=== PATIENT | female | born 1970 | race Caucasian/White ===

== ENCOUNTER 2022-12-20 03:14 | Emergency (ER) | payer MEDICAID | END 2022-12-20 03:54 | disposition left against medical advice (07) | LOC: ER 03:15 | DX: M79.671 Pain in right foot (principal); Z53.21 Procedure and treatment not carried out due to patient leaving prior to being seen by health care provider ==

== ENCOUNTER 2025-03-14 17:31 | Inpatient (IN) | payer MEDICAID ==
[~2025-03-14] VITALS: Ht 172.7 cm; Wt 55.0 kg
--- NOTE | 2025-03-14 18:10 | ELECTROCARDIOGRAPH REPORT ---
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 Keith Krishnamurthy Measurements Intervals [place] Rate: 78 P: 23 WY: 117 QRS: 25 QRSD: 120 T: -73 QT: 441 QTc: 503 Interpretive Statements Sinus rhythm Borderline short [place] interval Nonspecific intraventricular conduction delay Borderline T abnormalities, diffuse leads Electronically Signed On 03-15-2025 11:00:[address] Keith Krishnamurthy Please click the below link to view image of tracing.
--- NOTE | 2025-03-14 18:35 | Physician Documentation ---
History of Present Illness ~ Chief Complaint: Mechanical Fall Stated Complaint: FALL/HEAD STRIKE Time Seen by MD: 18:15 HPI This is a 55-year-old female who resides at [place] [facility] presents for evaluation of potential injuries sustained yesterday at 3:00 a.m. where she had a mechanical fall while trying to get out of bed. She complains of head strike and right chest wall pain with significant swelling to her right breast tissue. No palliating or aggravating factors. Did not attempt to treat it. Unclear why she did not present any sooner. Denies difficulty breathing. History of excessive alcohol use, sober for eight months. Review of Systems ROS 10 point review of systems was performed and unless noted above in HPI is negative for acute process/complaint. Physical Exam Vital Signs: Temperature: 97.2, Source: Oral, Heart Rate: 77, Respiratory Rate: 18, BP: 90/55, Pulse Oximetry: 96, Weight: 55.000 Physical Exam GENERAL: Awake, alert, oriented, GCS 15, no apparent distress, non-toxic appearing, answers questions, follows commands appropriately. Examined in fast track C HEENT: Atraumatic, normocephalic, pupils equal, extraocular muscles intact, sclerae notably anicteric mucus membranes moist, oropharynx is clear, no stridor. NECK: Range of motion of the neck was limited secondary to trauma presentation, trachea midline, no thyromegaly, no lymphadenopathy, no JVD. CARDIOVASCULAR: regular rate/rhythm, no murmurs/gallops/rubs, Pulses are 2+ in all extremities and symmetric. Capillary refill less than 2 seconds. PULMONARY: Nonlabored, good air movement ,no respiratory distress, speaking in full sentences, clear to auscultation bilaterally, no wheezing, no ronchi, no rales, no accessory muscle use. GASTROINTESTINAL: Soft, non-tender, non-distended, normal active bowel sounds, no organomegaly, no pulsatile masses, no CVA tenderness. NEUROLOGIC: Lucid with normal mental status. Normal facial symmetry. Moves all extremities symmetrically and with purpose. No truncal ataxia. Speech is fluid without evidence of dysarthria or aphasia, no focal deficits appreciated. MUSCULOSKELETAL: There is full range of motion of all extremities. There is no joint pain or joint swelling or joint erythema. There is no muscle pain or tenderness or swelling. EXTREMITIES: warm, well-perfused, no cyanosis, no clubbing, no edema, no acute deformities. Skin: warm, dry, no rashes or lesions, no jaundice, no petechiae orpurpura. No ecchymosis. PSYCHIATRIC: Normal affect, normal insight, normal concentration. Focused exam: Large approximately 15 cm in diameter hematoma to the right breast noted. Tenderness to palpation. Patient arrived without a C-collar and was placed in C-collar the emergency department. Progress Results/Orders Results/Orders Orders - NANO EARL DO Ct Head (03/14/25 ) Ct Cervical Spine (03/14/25 ) Ct Chest Abdomen Pelvis Iv Con (03/14/25 18:30) K And/Or Mag Replacement (K And/Or Mag R (03/14/25 20:45) K (03/15/25 03:00) K (03/16/25 03:00) K (03/17/25 03:00) K (03/18/25 03:00) K (03/19/25 03:00) K (03/20/25 03:00) K (03/21/25 03:00) Potassium Cl Sr Tablet (K-Dur Tablet) (03/14/25 20:45) Potassium Cl Sr Tablet (K-Dur Tablet) (03/14/25 20:45) MG (03/15/25 03:00) MG (03/16/25 03:00) MG (03/17/25 03:00) MG (03/18/25 03:00) MG (03/19/25 03:00) Magnesium Sulf-Water 2g/50ml (Magnesium (03/14/25 20:45) Magnesium Sulf-Water 4g/100ml (Magnesium (03/14/25 20:45) Potassium Cl 40meq/1/2ns 520ml ([place] (03/14/25 20:45) Normal Saline 1,000ml Iv Bolus (03/14/25 20:55) Completed Orders - NANO EARL DO Ct Head (03/14/25 ) Ammonia (03/14/25 18:15) Ct Cervical Spine (03/14/25 ) Ct Chest Abdomen Pelvis Iv Con (03/14/25 18:30) Iohexol 300mg/Ml 100ml Inj. (Omnipaque-3 (03/14/25 18:45) Vital Signs 03/14/25 03/14/25 03/14/25 17:41 18:54 20:51 Temp 97.2 Pulse 77 Resp 18 16 18 B/P (MAP) 90/55 88/52 (64) Pulse Ox 96 98 Laboratory Tests Test 03/14/25 18:20 White Blood Count 5.4 Red Blood Count 2.20 L Hemoglobin 8.4 L Hematocrit 24.0 L Mean Corpuscular Volume 108.6 H Mean Corpuscular Hemoglobin 38.0 H Mean Corpuscular Hemoglobin Concent 35.0 Red Cell Distribution Width 15.4 H Platelet Count 116 L Mean Platelet Volume 6.3 L Neutrophils (%) (Auto) 49.1 Lymphocytes (%) (Auto) 31.5 Monocytes (%) (Auto) 17.5 H Eosinophils (%) (Auto) 1.3 Basophils (%) (Auto) 0.6 Neutrophils # (Auto) 2.6 Lymphocytes # (Auto) 1.7 Monocytes # (Auto) 0.9 Eosinophils # (Auto) 0.1 Basophils # (Auto) 0.0 CBC Comment Differential Total Cells Counted 100 Neutrophils % (Manual) 58.0 Lymphocytes % (Manual) 25.0 Monocytes % (Manual) 15.0 H Eosinophils % (Manual) 2.0 Platelet Estimate Decreased Red Blood Cell Morphology Perf Basophilic Stippling Anisocytosis 1+ Macrocytosis 1+ Prothrombin Time 21.1 H INR International Normalized Ratio 2.2 Activated Partial Thromboplast Time 46 H Coagulation Comments Sodium Level 133 L Potassium Level 2.6 *L Chloride Level 100 Carbon Dioxide Level 21.4 L Anion Gap 12 Blood Urea Nitrogen 7 Creatinine 1.27 H Estimated GFR/1.73 m2 43 BUN/Creatinine Ratio 5.5 L Glucose Level 131 H Calcium Level 7.8 L Total Bilirubin 5.5 H Aspartate Amino Transf (AST/SGOT) 61 H Alanine Aminotransferase (ALT/SGPT) 22 Alkaline Phosphatase 87 Ammonia 13 Troponin I High Sensitivity 11 Total Protein 5.5 L Albumin 2.5 L Globulin 3.0 Albumin/Globulin Ratio 0.8 L Lipase 49 Chemistry Comments Medical Decision Making Findings Facility Status: ED Holds, [facility] process The plan was discussed with the patient, who demonstrates clear understanding of the plan and is in agreement with the plan unless otherwise noted in the chart. All questions have been answered, all concerns were addressed unless otherwise documented. I was available throughout their ED stay for frequent reassessment and questions. Differential Diagnoses (considered and possible or likely): [Ground level fall, acute traumatic pain, closed head injury, concussion, subdural, subarachnoid, cervical spine fracture or subluxation, potential thoracic injury including breast contusion, rib fracture, rib contusion, breast hematoma, pulmonary contusion, less likely cardiac contusion] ??Differential Diagnoses (considered and unlikely, not requiring evaluation currently): [No evidence of lateralizing signs to suspect a stroke] MDM Data Please see HPI for the following: Independent Historians and external Records Review. 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 All vitals signs/haemodynamics, ordered tests were independently reviewed and interpreted by myself. Nursing triage complaint and vitals reviewed, additional nursing notes were reviewed as available and I agree unless otherwise noted or documented in contradiction in the chart Vital Signs: Independently reviewed Labs: Independently interpreted Imaging: Independently interpreted Old Medical Records: Independently reviewed, see HPI for relevant summary and information Pulse Oximetry: [] interpreted as [normal on room air] by me [Costume Director: [Regular Rate, Regular rhythm, no ectopy, NSR] reviewed and interpreted by me] Additionally notably showing: [The patient has a borderline blood pressure which is likely related to her liver dysfunction and low albumin. Improved with fluids. The hypokalemia noted. Troponin is negative. Ammonia is normal. Imaging is unremarkable.] Tests considered but not ordered include: [MRI of altered mental status if n eeded can be done on an inpatient basis] Social Determinants of Health Impact: Patient was evaluated in [facility], or [facility] [place] to healthcare due to below par ratio of patient to medical providers. [] Comorbid Conditions Impacting Present Evaluation and Care/Treatment: [Multiple, see list] Management Discussions with other Healthcare Providers: [Hospitalist regarding admission] Treatment and Disposition Medication Management (Given or considered): []. See EMR for details Consideration for Hospitalization/Escalation/Deescalation of Care: Admission for observation has been considered, for further management of the patient's altered mental status and hypokalemia ?ED Course:?[No clinical improvement] ?Shared decision making:?[] Code status:?FULL Please see the full Electronic Medical Record for full details of nursing docum entation, medications list, other records of complete past medical history and conditions, vital signs, laboratory studies, and any radiologic study interpretations by radiologists. Portions of this note were completed using Swipp dictation software and as a result there may exist minor errors in spelling. I have reviewed elements of past family and social history and agree as included in note. Departure Disposition: ADMITTED INPATIENT Impression: Primary Impression: Altered mental status Additional Impressions: Hypokalemia Generalized weakness Hypoalbuminemia Ascites Ground-level fall Acute traumatic pain Closed head injury Soft tissue injury of right chest wall Coagulopathy Hyperbilirubinemia Referrals: NO PRIMARY CARE PROVIDER (PCP) Critical Care Note Critical Care Note CRITICAL CARE TIME: [ 35] minutes Treatments/Evaluations: Close monitoring and treatment of unstable vital signs, cardiorespiratory, and neurologic status, while maintaining tight balance of fluid, respiratory, and cardiac interventions. This time includes discussing the case with the patient and the patients family. This time does not include all procedures stated elsewhere in this record. This time also includes reviewing old records, labs and radiological studies. This time includes examining and re- examining the patient. Additionally, this time also includes arranging care with admitting and consulting physicians. Signature Scribe Signature: No scribe Attestation: This note accurately reflects clinical decisions, work performed by myself, DO RAJAT Gan NICHOLAS M DO March 14, 2025 18:34
[2025-03-14 18:45] LABS: BASOPHILS % (AUTO) 0.6 % (0-1); EOSINOPHILS # (AUTO) 0.1 X10'3 (0-0.9); EOSINOPHILS % (AUTO) 1.3 % (0-6); HEMOGLOBIN 8.4 g/dl (12.0-16.0); LYMPHOCYTES # (AUTO) 1.7 X10'3 (1.1-4.8); LYMPHOCYTES % (AUTO) 31.5 % (21-51); MEAN CORPUSCULAR VOLUME 108.6 FL (78-98); MEAN PLATELET VOLUME 6.3 FL (7.4-10.4); MONOCYTES # (AUTO) 0.9 X10'3 (0-0.9); MONOCYTES % (AUTO) 17.5 % (2-12); NEUTROPHILS # (AUTO) 2.6 X10'3 (1.8-7.7); NEUTROPHILS % (AUTO) 49.1 % (42-75); PLATELET COUNT 116 X10'3 (140-440); RED CELL DISTRIBUTION WIDTH 15.4 % (11.5-14.5); WHITE BLOOD COUNT 5.4 X10'3 (4.5-11.0)
[2025-03-14] MEDS ORDERED: iohexol 300mg/ml 100ml inj. ONE (18:45)
--- NOTE | 2025-03-14 18:51 | RADIOLOGY REPORT ---
EXAM: DI CHEST,SINGLE VIEW REASON FOR EXAM: Stroke Alert TECHNIQUE: 1 view of the chest COMPARISON: None FINDINGS/IMPRESSION: LUNGS: Medium left sided pleural effusion with likely atelectasis. MEDIASTINUM: Unremarkable BONES: No acute osseous abnormality OTHER: None
[2025-03-14 18:57] LABS: APTT 46 SECONDS (22-32); INR 2.2 INR; PROTHROMBIN TIME 21.1 SECONDS (9.0-12.0)
--- NOTE | 2025-03-14 19:22 | RADIOLOGY REPORT ---
CT CT HEAD INDICATION: HEADACHE/FALL/LIVERFAILURE COMPARISON: None TECHNIQUE: CT of the head without intravenous contrast. RADIATION DOSE: CTDIvol: mGy, DLP: mGy*cm FINDINGS: There is no evidence of intracranial hemorrhage, infarct, extra-axial collection, mass effect, midlin e shift, herniation or hydrocephalus. The torres-white differentiation is intact. Mild ventricular and sulcal enlargement related to cerebral volume loss. Visualized paranasal sinuses and mastoid air edilberto ls are clear. Soft tissues and osseous structures are unremarkable. IMPRESSION: No hemorrhage or other acute intracranial abnormality.
--- NOTE | 2025-03-14 19:26 | RADIOLOGY REPORT ---
EXAM: CT CT CERVICAL SPINE HISTORY: HEADACHE/FALL/LIVERFAILURE COMPARISON: None CTDIvol mGy, DLP mGy*cm. TECHNIQUE: Multiple axial CT images of the spine were obtained using bone algorithm. Axial and coron al reformatting was done. Bone and soft tissue windows were reviewed. FINDINGS: No prevertebral soft tissue abnormality noted. Straightening of the normal cervical lordosis. No list hesis. The cervical vertebral bodies appear unremarkable with no evidence of fracture or dislocation. Paraspinal soft tissues appear unremarkable. Cervical spondylosis predominantly at C5-C6 and to less er extent at C6-C7. [id number]-[id number] right-sided neural foraminal stenosis and mild spinal canal na rrowing at C5-C6. IMPRESSION: No evidence of cervical spine fracture or dislocation.
[2025-03-14 19:55] LABS: TOTAL CELLS COUNTED 100
[2025-03-14 19:56] LABS: ANISOCYTOSIS 1+; PLATELET ESTIMATE DECREASED
--- NOTE | 2025-03-14 20:08 | RADIOLOGY REPORT ---
EXAM: CT CT CHEST ABDOMEN PELVIS IV CON W/ IV CONTRAST INDICATION: fall, pain R chest wall/ruq, haematoma R breast TECHNIQUE: Volumetric multidetector CT images of the chest, abdomen and pelvis were obtained after th e administration of IV contrast. All CT scans at this facility use dose modulation, iterative reconst ruction, and/or weight based dosing when appropriate to reduce radiation dose to as low as reasonably achievable. COMPARISON: None FINDINGS: Chest: The thyroid gland is unremarkable. Mild cardiomegaly. No evidence of aortic aneurysm or dissection. The pulmonary trunk is normal in siz e. Mild dilatation of the left pulmonary artery up to 27 mm and right pulmonary artery up to 22 mm wh ich may be seen with pulmonary arterial hypertension. No significant mediastinal lymphadenopathy. No pneumothorax. Small to moderate left-sided pleural effusion with associated atelectasis of the lef t lower lobe. Elevated left hemidiaphragm. Right middle lobe, right lower lobe and right-sided depend ent atelectasis. There is soft tissue edema of the right anterior upper chest wall. Bilateral breast implants are not ed. No evidence of acute osseous abnormalities.. Mild dextroconvex curvature upper thoracic spine. He mangioma within the T5 and T11 vertebral bodies. Abdomen and pelvis: Subtle micronodular contour of the liver with recanalization of the umbilical vein and gastric varice s consistent with cirrhosis with portal hypertension. Spleen, and adrenal glands unremarkable. 1.1 x 1.8 x 3.8 cm hypodense area with internal nondependent focus of air medial to the 2nd part of t he duodenum which may represent a duodenal diverticulum. The pancreas is otherwise unremarkable. The common bile duct and pancreatic ducts are unremarkable. Kidneys, ureters and urinary bladder unremarkable. Heterogeneous appearance of the uterus. Otherwise , uterus is unremarkable. The bilateral adnexa are not well evaluated with the peripherally calcified 1.4 by 1 cm nodule within the right hemipelvis of the right adnexa. Limited evaluation of the stomach due to inadequate distention. Mild wall Thickening of proximal smal l bowel loops. The remainder of the small bowel loops unremarkable. Appendix is not definitely visual ized. Mild wall thickening of the proximal ascending colon. Moderate amount of fecal material within the ascending and transverse colons. Large volume ascites. No evidence of intraperitoneal free air. No evidence of aortic aneurysm or dissection. Shotty mesenteric lymph nodes. Minimal body wall edema. 1.8 cm lytic lesion within the right iliac bone. No evidence of acute bony abnormalities. IMPRESSION: Mild right anterior chest wall soft tissue edema. No obvious hematoma is visualized. Small to moderate left-sided pleural effusion with associated atelectasis. Right middle lobe and right lateral lobe atelectasis. Cirrhotic appearing liver with portal hypertension. Large volume ascites. Wall thickening of proximal small bowel loops which may be from the surrounding ascites with enteriti s not excluded. Segmental wall thickening of the ascending colon which may be from the surrounding ascites with colit is not excluded. Additional findings as above.
[2025-03-14 20:26] LABS: ALANINE AMINOTRANSFERASE 22 U/L (12-78); ALBUMIN 2.5 G/DL (3.4-5.0); ALKALINE PHOSPHATASE 87 IU/L (46-116); ANION GAP 12 (8-16); ASPARTATE AMINO TRANSFERASE 61 U/L (10-37); BILIRUBIN,TOTAL 5.5 MG/DL (0.1-1.0); BLOOD UREA NITROGEN 7 MG/DL (7-18); BUN/CREATININE RATIO 5.5 (10.0-20.0); CALCIUM 7.8 MG/DL (8.5-10.1); CHLORIDE 100 MMOL/L (99-107); CREATININE 1.27 MG/DL (0.40-0.90); GLUCOSE 131 MG/DL (70-104); LIPASE 49 U/L (16-77); SODIUM 133 MMOL/L (135-145); TOTAL CARBON DIOXIDE 21.4 MMOL/L (24-32); eCRCL 42 ML/MIN; eGFR 43 ML/MIN
[2025-03-14 20:35] LABS: ALBUMIN/GLOBULIN RATIO 0.8 (1.1-1.5); TOTAL PROTEIN 5.5 G/DL (6.4-8.2)
[2025-03-14 20:42] LABS: POTASSIUM 2.6 MMOL/L (3.5-5.1)
[2025-03-14] MEDS ORDERED: magnesium sulf-water 2g/50mL 50 ML IV PRN ×2 (20:45→23:30)
[2025-03-14] MEDS ORDERED: potassium Cl 40MEQ/1/2NS 520ml 520 ML IV PRN ×2 (20:45→23:30)
[2025-03-14] MEDS ORDERED: K and/or MAG REPLACEMENT MC PRN (20:45)
[2025-03-14] MEDS ORDERED: magnesium sulf-water 4G/100mL 100 ML IV PRN ×2 (20:45→23:30)
[2025-03-14] MEDS ORDERED: potassium Cl 20 mEq SR tablet PO PRN ×3 (20:45→23:30)
[2025-03-14] MEDS: normal saline 1000ml 1,000 ML IV ONE (21:24)
[2025-03-14] MEDS: potassium Cl 20 mEq SR tablet PO PRN (22:09)
[2025-03-14] MEDS ORDERED: magnesium Cl slow-release 64mg tablet PO PRN (23:30)
[2025-03-14] MEDS ORDERED: HYDROmorphone/PF 0.2 MG/ML SYRINGE IV PRN (23:30)
[2025-03-14] MEDS: normal saline 1000ML IV soln IVB ONE (23:56)
[2025-03-14] MEDS: Potassium Cl inj 40 MEQ in normal saline 500ml IV soln 500 ML IV ONE (23:57)
[2025-03-15] MEDS: potassium Cl 40MEQ/1/2NS 520ml 520 ML IV ONE (00:02)
--- NOTE | 2025-03-15 00:05 | HISTORY AND PHYSICAL-Residence ---
History & Physical Providers to CC Resident Creating Document: WILLIE ASIF RES ~ History of Present Illness Reason for Admit\Complaint: Decompensated Liver Cirrhosis History of Present Illness 55-year-old female with a history of liver cirrhosis secondary to alcohol abuse depression/anxiety presents to the ED after a fall. Patient was brought in via ambulance from [facility] after she had fallen in the middle of the night after trying to go to the bathroom. She tells me she slipped and fell and hit her head and her chest against the floor. Denies any loss of consciousness. She did not immediately go to the ED as she can not get any help and later came to our ED almost a day later. On presentation patient complains of chest pain and weakness. Patient was placed in a cervical collar and cervical spine CT did not show any dislocation or fracture. Abdominal CT did show ascites. She recently had paracentesis done 03/13 with 6 L removed. Blood pressure admission hypotensive and was given IV fluids. Allergies: Coded Allergies: acetaminophen (Verified Allergy, Unknown, 03/14/25) LIVER FAILURE Past Medical History Past Medical History Cirrhosis of liver secondary to alcohol abuse Anxiety/depression Past Social History Social History Comment History of alcohol use. Sober for the last seven months. Denies any recreational drug use or tobacco use. Homeless Exam Vitals: Vital Signs Date Time Temp Pulse Resp B/P (MAP) Pulse Ox O2 Delivery O2 Flow Rate FiO2 03/14/25 23:23 81 16 86/50 (62) 97 03/14/25 17:41 97.2 General: General: Awake and Alert, no acute distress. HEENT: Conjunctiva pink, Sclera icteric, Mucus Membranes moist. Neck: Supple without masses and tenderness. Resp: Decreased breath sounds in the left. Heart: Regular Rate and rhythm, normal S1 and S2 without murmur, rub or gallop. Chest wall: Right bruising on the right breast with pain on palpation Abdomen: Distended abdomen with positive fluid wave Extremities: No cyanosis,clubbing or edema. Skin: Warm and Dry. Diagnostic Data Last Recorded Lab Results: 03/14/25 1820 03/14/25 182 Diagnostic Data: Laboratory Tests Test 03/14/25 18:20 Prothrombin Time 21.1 SECONDS (9.0-12.0) H INR International Normalized Ratio 2.2 INR Activated Partial Thromboplast Time 46 SECONDS (22-32) H Coagulation Comments Advance Care Planning Advanced Care plannin - 30 Minutes Additional Plan Decompensated liver cirrhosis with ascites Alcoholic cirrhosis of liver Hyperbilirubinemia Hypotension Hypokalemia MELD score is 26. Patient has already been referred to Dr. Murdock and currently on the wait list for June appointment. She is seven months sober Last paracentesis was on March 13 with 6 L removed at [facility]. Will need to be set up for weekly to biweekly paracentesis. Current MAP is less than 65. Started patient on midodrine 10 mg t.i.d. Will give her one dose of albumin tonight. Would start her Lasix and spironolactone as blood pressure improves. 2 g sodium restricted diet Hypokalemia likely due to multiple episodes of diarrhea from her lactulose. Titrate lactulose to three bowel movements a day. Start lactulose after potassium within normal range Requires EGD to assess for varices Macrocytic anemia Thiamine, folate, multivitamins ordered RADHA Unknown baseline continue to monitor was given IV fluids in the ED. Left-sided pleural effusion Currently on room air. When blood pressure improves start her on Lasix Mechanical fall Right breast bruising Cervical spine showed no fracture or dislocation on CT. Head CT negative for any hemorrhage. Cervical collar okay to remove Ice pack for right breast pain Code Status: Full code DVT prophylaxis: SCDs Nutrition: Regular with 2 g sodium restriction PT: Yes Prognosis: Guarded Disposition: Continue medical management Willie Asif MD Internal Medicine Resident PGY-3 Pt was seen and evaluated with the resident team Agree with assessment and plan as documented Date of Service: March 15, 2025 Billing Provider: VERONICA MCLAIN MD, TOBIN, RES March 15, 2025 00:05 VERONICA MCLAIN MD March 15, 2025 07:54
[2025-03-15] MEDS: diphenhydrAMINE 25mg capsule PO ONE (00:11)
[2025-03-15] MEDS ORDERED: THIA100T66 PO (00:21)
[2025-03-15] MEDS ORDERED: SPIR25TA5 (00:21)
[2025-03-15] MEDS ORDERED: MIDO10TA3 PO (00:21)
[2025-03-15] MEDS ORDERED: ESCI20TA39 PO (00:21)
[2025-03-15] MEDS ORDERED: TRAZ-251 PO (00:21)
[2025-03-15] MEDS ORDERED: FOLI1TAB27 PO (00:21)
[2025-03-15] MEDS ORDERED: TRAM50TA2 PO (00:21)
[2025-03-15] MEDS ORDERED: SENN-360 PO (00:21)
[2025-03-15] MEDS: midodrine 5mg tablet PO ONE (00:55)
[2025-03-15] MEDS: albumin (human) 25% 100 ML IV solution IV ONE ×2 (01:43→09:45)
[2025-03-15 02:17] LABS: % IRON SATURATION 88 % (11-46); IRON 69 UG/DL (49-151); TOTAL IRON BINDING CAPACITY 78 UG/DL (259-388)
[2025-03-15 03:00] LABS: FERRITIN 1440 NG/ML (8-252)
[2025-03-15] MEDS: midodrine tablet 2.5 MG TABLET PO STA (03:45)
[2025-03-15] MEDS ORDERED: metoprolol tartrate 50mg tablet PO ONE (07:40)
[2025-03-15] MEDS: hydrALAZINE 25 MG tablet PO SCH (08:00)
[2025-03-15] MEDS: K and/or MAG REPLACEMENT MC SCH (08:00)
[2025-03-15] MEDS: multivitamins, therapeutics tablet PO SCH (08:25)
[2025-03-15 08:26] LABS: BASOPHILS # (AUTO) 0.1 X10'3 (0-0.2); BASOPHILS % (AUTO) 1.2 % (0-1); EOSINOPHILS # (AUTO) 0.1 X10'3 (0-0.9); EOSINOPHILS % (AUTO) 1.6 % (0-6); HEMOGLOBIN 7.5 g/dl (12.0-16.0); LYMPHOCYTES # (AUTO) 1.6 X10'3 (1.1-4.8); LYMPHOCYTES % (AUTO) 34.3 % (21-51); MEAN CORPUSCULAR HEMOGLOBIN 37.7 PG (27.0-31.0); MEAN CORPUSCULAR HGB CONC 34.5 g/dL (33.0-36.5); MEAN CORPUSCULAR VOLUME 109.2 FL (78-98); MEAN PLATELET VOLUME 6.2 FL (7.4-10.4); MONOCYTES # (AUTO) 0.7 X10'3 (0-0.9); MONOCYTES % (AUTO) 15.1 % (2-12); NEUTROPHILS # (AUTO) 2.2 X10'3 (1.8-7.7); NEUTROPHILS % (AUTO) 47.8 % (42-75); PLATELET COUNT 104 X10'3 (140-440); RED BLOOD COUNT 1.98 X10'6 (4.20-5.60); RED CELL DISTRIBUTION WIDTH 15.7 % (11.5-14.5); WHITE BLOOD COUNT 4.6 X10'3 (4.5-11.0)
[2025-03-15] MEDS: thiamine 100mg tablet PO ONE (08:27)
[2025-03-15] MEDS: midodrine tablet 2.5 MG TABLET PO SCH (08:27)
[2025-03-15] MEDS: folic acid 1mg tablet PO ONE (08:27)
[2025-03-15 08:31] LABS: HEMATOCRIT 21.6 % (35.0-45.0)
[2025-03-15] MEDS: metoprolol tartrate 25mg tablet PO ONE (08:31)
[2025-03-15 08:55] LABS: ALANINE AMINOTRANSFERASE 19 U/L (12-78); ALBUMIN 2.8 G/DL (3.4-5.0); ALKALINE PHOSPHATASE 60 IU/L (46-116); ANION GAP 8 (8-16); ASPARTATE AMINO TRANSFERASE 49 U/L (10-37); BILIRUBIN,TOTAL 5.4 MG/DL (0.1-1.0); BLOOD UREA NITROGEN 5 MG/DL (7-18); BUN/CREATININE RATIO 4.7 (10.0-20.0); CHLORIDE 106 MMOL/L (99-107); CREATININE 1.07 MG/DL (0.40-0.90); GLUCOSE 96 MG/DL (70-104); MAGNESIUM 1.7 MG/DL (1.5-2.4); POTASSIUM 4.1 MMOL/L (3.5-5.1); SODIUM 135 MMOL/L (135-145); TOTAL CARBON DIOXIDE 21.2 MMOL/L (24-32); eCRCL 50 ML/MIN; eGFR 53 ML/MIN
[2025-03-15 08:59] LABS: APTT 58 SECONDS (22-32)
[2025-03-15 09:02] LABS: ALBUMIN/GLOBULIN RATIO 1.1 (1.1-1.5); PHOSPHORUS 2.3 MG/DL (2.3-4.5); TOTAL PROTEIN 5.3 G/DL (6.4-8.2)
[2025-03-15] MEDS: propranolol 10mg tablet PO SCH (09:23)
[2025-03-15 09:39] LABS: APTT 57 SECONDS (22-32)
[2025-03-15] MEDS: lactulose 20gm/30ml cup PO SCH (09:45)
--- NOTE | 2025-03-15 10:22 | PROGRESS NOTE- Residence ---
Progress Note - Resident Providers to CC Resident Creating Document: ELAINA BOLANOSS, RES ~ Antibiotic Timeout Antibiotic Ordered?: No Subjective Patient was seen and examined at bedside in ER room one. She did not report any issues or concerns except pain in IV site. I spoke to her son (Shakeel, ) who is also her POA. He is highly involved in his mother's care and expressed multiple concerns: The patient was referred to Dr. Murdock by her PCP, Dr. Mckayla Leggett. An appointment is scheduled for June, but no specific date is yet confirmed. He requested that we attempt to expedite the appointment, citing concern for her his mother's clinical deterioration. He reported that approximately 6 L of fluid were drained during a recent paracentesis last and inquired about the MELD score, which he had previously been told over 30. Today, I informed him that is currently 26. He demonstrated understanding of the MELD score system and its significance. Shakeel expressed dissatisfaction with the care provided at [facility] and requested a referral to a different [facility] facility. He asked to speak with a social services coordinator to explore transfer options. I explained that the June appointment is likely realistic, as early dates may not be available in the transplant evaluation consider duration of sobriety , with eight months of sobriety his mom. He acknowledged this but still requested outreach to Dr. Evans's office to explore earlier availability. He clarified that the patient is not yet on the transplant list, and upcoming appointment is for transplant evaluation Objective Vital Signs Date Time Temp Pulse Resp B/P (MAP) Pulse Ox O2 Delivery O2 Flow Rate FiO2 03/15/25 10:03 98.0 79 21 89/54 (66) 94 0 General: Awake and Alert, no acute distress. HEENT: Yellow discoloration of skin color, Mucus Membranes dry Neck: Supple without masses and tenderness. Resp: Decreased breath sounds in the left. Heart: Regular Rate and rhythm, normal S1 and S2 without murmur, rub or gallop. Chest wall: Right bruising on the right breast with pain on palpation Abdomen: Distended abdomen with positive fluid wave Extremities: No cyanosis,clubbing or edema. Skin: Warm and Dry. Result Diagram: 03/15/25 0759 03/15/25 0759 Coagulation Studies Laboratory Tests Test 03/15/25 09:00 Prothrombin Time SECONDS (9.0-12.0) INR International Normalized Ratio INR Activated Partial Thromboplast Time 57 SECONDS (22-32) H Coagulation Comments Advance Care Planning Advanced Care plannin - 30 Minutes Assessment Assessment Patient is a 55-year-old female with a history of decompensated alcoholic liver cirrhosis, sober for eight months, currently waiting for transplant evaluation appointment. She was transferred from [facility] after a fall enroute to the bathroom. She denies any new complaints this morning. No panic separate the IV insertion site in the right forearm. Reports constipation since yesterday. Plan Plan Decompensated alcohol liver cirrhosis with ascites and portal hypertension Hyperbilirubinemia; 5.4 Hypotension Hypokalemia MELD score is 26. No signs of systemic infection, no signs of hepatic encephalopathy CT abdomen, Cirrhotic appearing liver with portal hypertension, Large volume ascites. Appointment with Dr. Murdock in June 2025, date not yet confirmed Paracentesis on March 13 with 6 L removed at [facility] [place] Prevent constipation; lactulose initiated Prophylaxis against variceal bleeding; propranolol initiated Volume status; hypovolemic, received NS 1 L bolus in ER, 200 mL of 25% albumin given Antibiotics; Rocephin 1 mg IV daily initiated for suspected infection Sodium restriction; < 2 g per day Avoid hepatotoxic medications, avoid NSAIDs EGD to assess for varices Follow alpha fetoprotein Acute kidney injury; likely vasomotor nephropathy Less likely hepatorenal syndrome Urine lytes ordered, please follow Monitor BMP Macrocytic anemia Thiamine, folate, multivitamins ordered Left-sided pleural effusion Right middle lobe and right lateral lobe atelectasis Lasix after she becomes hemodynamically stable Rocephin 1 mg IV daily for suspected bacterial infection; Gram-positive and Gram-negative coverage Mechanical fall Right breast bruising Cervical spine showed no fracture or dislocation on CT. Head CT negative for any hemorrhage. Cervical collar okay to remove Ice pack for right breast pain Code Status: Full code DVT prophylaxis: SCDs Nutrition: Regular with 2 g sodium restriction PT: Yes Prognosis: Guarded Disposition: Continue medical management Kym Bolanos Internal Medicine Resident Date of Service: March 15, 2025 Billing Provider: BRAYDEN CHRISTENSEN MD, SHAMS, RES March 15, 2025 10:22
[2025-03-15] MEDS: lactose-reduced food (Ensure Enlive) - 237ml bottle PO SCH (10:24)
[2025-03-15] MEDS: CefTRIAXone/D5W-Rocephin 1gm 50 ML IV SCH (11:54)
[2025-03-15 14:15] VITALS: BP 92/54; PULSE 83; RESP 20; TEMP 98.6; O2SAT 93
[2025-03-15 15:47] LABS: INR 3.4 INR; PROTHROMBIN TIME 31.7 SECONDS (9-12)
[2025-03-15 18:00] VITALS: BP 80/49; PULSE 84; RESP 18; TEMP 98.8; O2SAT 90
[2025-03-15] MEDS: traZODone 50mg tablet PO ONE (21:34)
[2025-03-15 22:00] VITALS: BP 81/59; PULSE 87; RESP 16; TEMP 99.3; O2SAT 94
[2025-03-16] VITALS (9 sets, daily range): BP systolic 77–87; BP diastolic 32–61; PULSE 60–95; RESP 16–20; TEMP 98–98.7; O2SAT 94–98
[2025-03-16] MEDS: spironolactone 25 MG tablet PO SCH (08:00)
[2025-03-16] MEDS: multivitamins, therapeutics tablet PO SCH (08:00)
[2025-03-16 08:46] LABS: BASOPHILS % (AUTO) 0.9 % (0-1); EOSINOPHILS # (AUTO) 0.1 X10'3 (0-0.9); EOSINOPHILS % (AUTO) 1.3 % (0-6); LYMPHOCYTES # (AUTO) 1.6 X10'3 (1.1-4.8); LYMPHOCYTES % (AUTO) 36.8 % (21-51); MEAN CORPUSCULAR HEMOGLOBIN 37.8 PG (27.0-31.0); MEAN CORPUSCULAR HGB CONC 33.8 g/dL (33.0-36.5); MEAN CORPUSCULAR VOLUME 111.8 FL (78-98); MEAN PLATELET VOLUME 6.3 FL (7.4-10.4); MONOCYTES # (AUTO) 0.5 X10'3 (0-0.9); MONOCYTES % (AUTO) 12.3 % (2-12); NEUTROPHILS # (AUTO) 2.1 X10'3 (1.8-7.7); NEUTROPHILS % (AUTO) 48.7 % (42-75); PLATELET COUNT 92 X10'3 (140-440); RED BLOOD COUNT 1.87 X10'6 (4.20-5.60); RED CELL DISTRIBUTION WIDTH 16.4 % (11.5-14.5); WHITE BLOOD COUNT 4.2 X10'3 (4.5-11.0)
[2025-03-16 08:51] LABS: HEMATOCRIT 20.9 % (35.0-45.0)
[2025-03-16 09:04] LABS: APTT 51 SECONDS (22-32); INR 2.4 INR; PROTHROMBIN TIME 22.5 SECONDS (9.0-12.0)
[2025-03-16 09:11] LABS: ALANINE AMINOTRANSFERASE 19 U/L (12-78); ALBUMIN 3.3 G/DL (3.4-5.0); ALKALINE PHOSPHATASE 62 IU/L (46-116); ANION GAP 12 (8-16); ASPARTATE AMINO TRANSFERASE 51 U/L (10-37); BILIRUBIN,TOTAL 6.2 MG/DL (0.1-1.0); BLOOD UREA NITROGEN 5 MG/DL (7-18); BUN/CREATININE RATIO 4.3 (10.0-20.0); CALCIUM 8.7 MG/DL (8.5-10.1); CHLORIDE 103 MMOL/L (99-107); CREATININE 1.17 MG/DL (0.40-0.90); GLUCOSE 119 MG/DL (70-104); MAGNESIUM 1.8 MG/DL (1.5-2.4); POTASSIUM 3.6 MMOL/L (3.5-5.1); SODIUM 135 MMOL/L (135-145); TOTAL CARBON DIOXIDE 20.3 MMOL/L (24-32); eCRCL 46 ML/MIN; eGFR 48 ML/MIN
[2025-03-16 09:15] LABS: ALBUMIN/GLOBULIN RATIO 1.4 (1.1-1.5); PHOSPHORUS 2.6 MG/DL (2.3-4.5); TOTAL PROTEIN 5.6 G/DL (6.4-8.2)
[2025-03-16] MEDS: folic acid 1mg tablet PO SCH (13:05)
--- NOTE | 2025-03-16 19:09 | PROGRESS NOTE- Residence ---
Progress Note - Resident Providers to CC Resident Creating Document: EDIN FRENCH, DEXTER ~ Antibiotic Timeout Antibiotic Ordered?: No Subjective Patient was seen and examined at bedside in ER room one. Patient mentions that she was not able to get up for physical therapy and was about to trip. Hence physical therapy was not done today. Hemoglobin is 7 today and 1 unit of PRBC transfused. Patient abdomen is moderately distended and may need paracentesis soon. Evaluate tomorrow Objective Vital Signs Date Time Temp Pulse Resp B/P (MAP) Pulse Ox O2 Delivery O2 Flow Rate FiO2 03/16/25 18:30 68 03/16/25 15:00 98.1 16 87/61 03/16/25 10:00 94 Room Air 03/15/25 14:35 0.0 Result Diagram: 03/16/25 0823 03/16/25 0823 General: Awake and Alert, no acute distress. HEENT: Conjunctiva pink, Sclera icteric, Mucus Membranes moist. Neck: Supple without masses and tenderness. Resp: Decreased breath sounds in the left. Heart: Regular Rate and rhythm, normal S1 and S2 without murmur, rub or gallop. Chest wall: Right bruising on the right breast with pain on palpation Abdomen: Distended abdomen with positive fluid wave Extremities: No cyanosis,clubbing or edema. Skin: Warm and Dry. Coagulation Studies Laboratory Tests Test 03/16/25 08:23 Prothrombin Time 22.5 SECONDS (9.0-12.0) H INR International Normalized Ratio 2.4 INR Activated Partial Thromboplast Time 51 SECONDS (22-32) H Coagulation Comments Assessment Assessment Patient is a 55-year-old female with a history of decompensated alcoholic liver cirrhosis, sober for eight months, currently waiting for transplant evaluation appointment. She was transferred from [facility] after a fall enroute to the bathroom. She denies any new complaints this morning. No panic separate the IV insertion site in the right forearm. Reports constipation since yesterday. Plan Plan Decompensated alcohol liver cirrhosis with ascites and portal hypertension Hyperbilirubinemia; 5.4 Hypotension Hypokalemia MELD score is 26. No signs of systemic infection, no signs of hepatic encephalopathy CT abdomen, Cirrhotic appearing liver with portal hypertension, Large volume ascites. Appointment with Dr. Murdock in June 2025, date not yet confirmed Paracentesis on March 13 with 6 L removed at [place] Prevent constipation; lactulose initiated Prophylaxis against variceal bleeding; propranolol initiated Volume status; hypovolemic, received NS 1 L bolus in ER, 200 mL of 25% albumin given Antibiotics; Rocephin 1 mg IV daily initiated for suspected infection Sodium restriction; < 2 g per day Avoid hepatotoxic medications, avoid NSAIDs EGD to assess for varices Follow alpha fetoprotein Acute kidney injury; likely vasomotor nephropathy Less likely hepatorenal syndrome Urine lytes ordered, please follow Monitor BMP Macrocytic anemia Thiamine, folate, multivitamins ordered 03/16/2025: 1 unit PRBC transfused Left-sided pleural effusion Right middle lobe and right lateral lobe atelectasis Lasix after she becomes hemodynamically stable Rocephin 1 mg IV daily for suspected bacterial infection; Gram-positive and Gram-negative coverage Mechanical fall Right breast bruising Cervical spine showed no fracture or dislocation on CT. Head CT negative for any hemorrhage. Cervical collar okay to remove Ice pack for right breast pain Code Status: Full code DVT prophylaxis: SCDs Nutrition: Regular with 2 g sodium restriction PT: Yes Prognosis: Guarded Disposition: Continue medical management. Pending physical therapy evaluation and discharge planning. Edin Millan Internal Medicine Resident Date of Service: Mar 16, 2025 Billing Provider: BRAYDEN CHRISTENSEN MD,EDIN MILLAN, RES Mar 16, 2025 19:09
[2025-03-16] MEDS ORDERED: pantoprazole 40MG/NS 100ML BAG 100 ML IV SCH (20:00)
[2025-03-16] MEDS: pantoprazole 40 MG vial IV SCH (21:17)
[2025-03-16] MEDS: traZODone 50mg tablet PO SCH (21:17)
[2025-03-16] MEDS: thiamine 100mg tablet PO SCH (21:18)
[2025-03-17 06:00] VITALS: BP 72/42; PULSE 69; RESP 16; O2SAT 91
[2025-03-17 06:00] LABS: BASOPHILS % (AUTO) 0.6 % (0-1); EOSINOPHILS # (AUTO) 0.2 X10'3 (0-0.9); EOSINOPHILS % (AUTO) 3.3 % (0-6); HEMATOCRIT 23.7 % (35.0-45.0); HEMOGLOBIN 8.1 g/dl (12.0-16.0); LYMPHOCYTES # (AUTO) 1.9 X10'3 (1.1-4.8); LYMPHOCYTES % (AUTO) 35.2 % (21-51); MEAN CORPUSCULAR HEMOGLOBIN 35.8 PG (27.0-31.0); MEAN CORPUSCULAR HGB CONC 34.5 g/dL (33.0-36.5); MEAN CORPUSCULAR VOLUME 103.8 FL (78-98); MEAN PLATELET VOLUME 6.6 FL (7.4-10.4); MONOCYTES # (AUTO) 0.7 X10'3 (0-0.9); MONOCYTES % (AUTO) 12.1 % (2-12); NEUTROPHILS # (AUTO) 2.6 X10'3 (1.8-7.7); NEUTROPHILS % (AUTO) 48.8 % (42-75); PLATELET COUNT 93 X10'3 (140-440); RED BLOOD COUNT 2.28 X10'6 (4.20-5.60); RED CELL DISTRIBUTION WIDTH 21.8 % (11.5-14.5); WHITE BLOOD COUNT 5.4 X10'3 (4.5-11.0)
[2025-03-17 06:13] LABS: APTT 55 SECONDS (22-32); INR 2.4 INR; PROTHROMBIN TIME 22.3 SECONDS (9.0-12.0)
[2025-03-17 06:17] LABS: ALANINE AMINOTRANSFERASE 35 U/L (12-78); ALBUMIN 2.7 G/DL (3.4-5.0); ALKALINE PHOSPHATASE 69 IU/L (46-116); ANION GAP 7 (8-16); ASPARTATE AMINO TRANSFERASE 61 U/L (10-37); BLOOD UREA NITROGEN 1 MG/DL (7-18); CALCIUM 8.4 MG/DL (8.5-10.1); CHLORIDE 103 MMOL/L (99-107); CREATININE 0.99 MG/DL (0.40-0.90); GLUCOSE 114 MG/DL (70-104); MAGNESIUM 1.7 MG/DL (1.5-2.4); POTASSIUM 3.7 MMOL/L (3.5-5.1); SODIUM 131 MMOL/L (135-145); TOTAL CARBON DIOXIDE 21.4 MMOL/L (24-32); eCRCL 54 ML/MIN; eGFR 58 ML/MIN
[2025-03-17 06:19] LABS: PHOSPHORUS 2.8 MG/DL (2.3-4.5)
[2025-03-17 06:39] LABS: BILIRUBIN,TOTAL 5.6 MG/DL (0.1-1.0)
[2025-03-17 06:40] LABS: ALBUMIN/GLOBULIN RATIO 1.1 (1.1-1.5); TOTAL PROTEIN 5.1 G/DL (6.4-8.2)
[2025-03-17] MEDS: midodrine 5mg tablet PO SCH (08:41)
[2025-03-17 10:00] VITALS: BP 69/43; PULSE 61; RESP 16; TEMP 98.9; O2SAT 95
[2025-03-17] MEDS: lactose-reduced food (Ensure Enlive) - 237ml bottle PO SCH (13:57)
[2025-03-17 16:35] LABS: BILIRUBIN,URINE LARGE (Neg); CLARITY,URINE CLOUDY (Clear); GLUCOSE, URINE 100 mg/dl (Neg); KETONES,URINE 15 mg/dl (Neg); LEUKOCYTE ESTERASE ,URINE TRACE (Neg); OCCULT BLOOD,URINE LARGE (Neg); PH,URINE 5.5 (4.8-8.0); PROTEIN,URINE 100 mg/dl (Neg)
[2025-03-17 16:45] LABS: COLOR,URINE DARK YELLOW (Yellow); NITRITES, URINE NEGATIVE (Neg)
[2025-03-17 16:46] LABS: UA COLLECTION TYPE STRAIGHT CATH
[2025-03-17 16:49] LABS: BACTERIA,URINE FEW /HPF (Neg); SQUAMOUS EPITHELIAL CELL,UR MODERATE /LPF (FEW); TRANSITIONAL EPI CELLS,URINE FEW /HPF
[2025-03-17 16:50] LABS: RENAL CELLS, URINE FEW /HPF
[2025-03-17 18:00] VITALS: BP 139/72; PULSE 67; RESP 18; TEMP 98; O2SAT 99
--- NOTE | 2025-03-17 19:19 | PROGRESS NOTE- Residence ---
Progress Note - Resident Providers to CC Resident Creating Document: GREGORIO SOLANO RES ~ Antibiotic Timeout Antibiotic Ordered?: Yes Subjective Patient was seen at the ortho floor this morning. She is currently waiting for placement. Objective Vital Signs Date Time Temp Pulse Resp B/P (MAP) Pulse Ox O2 Delivery O2 Flow Rate FiO2 03/17/25 10:00 98.9 61 16 69/43 (52) 95 Room Air 03/15/25 14:35 0.0 Result Diagram: 03/17/2551603/17/25 05 Vitals were stable at the moment. On exam, General: Well alert, well oriented, not confused, not agitated, not in acute distress, well cooperated during the physical. HEENT: Conjunctive are pink, sclerae clear, no icterus, pupil is equal in both sides, reactive to light, no ear discharge, no pharyngeal erythema or an edema, mouth and lips are moist. Neck: Supple, no JVD, no lymphadenopathy and thyromegaly. Lungs and chest:Equal air entry on both lungs, decreased breath sounds in the left, right bruising on the right breast with the pain on palpation Heart: S1-S2 regular sinus rhythm and, regular rate, no gallops, no rubs, no murmurs Abdomen: No visible peristalsis, Bowel sounds present on auscultation, soft, diffusely distended abdomen with positive fluid wave, nontender, no guarding, no rigidity Extremities: No obvious deformities, no pitting edema bilaterally, capillary refill intact, able to wiggle toes both sides, peripheral pulsations are intact on both sides TREASURY AGENT: No focal neurological deficits, no motor and sensory weakness in all 4 extremities, could move all 4 extremities Musculoskeletal: No joint swelling, deformities, inflammations, and no scoliosis and back tenderness Skin: No active skin lesions and rashes Coagulation Studies Laboratory Tests Test 03/17/25 05:17 Prothrombin Time 22.3 SECONDS (9.0-12.0) H INR International Normalized Ratio 2.4 INR Activated Partial Thromboplast Time 55 SECONDS (22-32) H Coagulation Comments Assessment Assessment Patient is a 55-year-old female with a history of decompensated alcoholic liver cirrhosis, sober for eight months, currently waiting for transplant evaluation appointment. She was transferred from [facility] after a fall enroute to the bathroom. She denies any new complaints this morning. No panic separate the IV insertion site in the right forearm. Reports constipation since yesterday. Plan Plan Decompensated alcohol liver cirrhosis with ascites and portal hypertension Hyperbilirubinemia; 5.4 Hypotension Hypokalemia MELD score is 26. Bladder scan and to proceed with straight catheterization if Residual >600cc. Continue w/ [employer] appointment Last time paracentesis 6L extraction was done on March 13 at [facility] Continue Lactulose for constipation Continue Propranolol, IV Ceftriaxone, and salt restriction 2g daily plan for EGD AFP WNL Acute kidney injury from renal tubular stasis Reduced the frequency of ensure to b.i.d. from t.i.d. with meals Low serum osmolality, pending urine lytes Less likely hepatorenal syndrome Creatinine gradually normalizing to her baseline Continue daily monitoring Hyperchromic Macrocytic anemia Ordered retic count and LDH for possible B12 deficiency Continue Thiamine, folate, multivitamins 1 unit PRBC transfused was given Left-sided pleural effusion Right middle lobe and right lateral lobe atelectasis Given insensitive spirometry Lasix after she becomes hemodynamically stable, still on soft side Rocephin 1 mg IV daily for suspected bacterial infection; Gram-positive and Gram-negative coverage Mechanical fall Right breast bruising Cervical spine showed no fracture or dislocation on CT. Head CT negative for any hemorrhage. Cervical collar okay to remove Ice pack for right breast pain Code Status: Full code DVT prophylaxis: SCDs Nutrition: Regular with 2 g sodium restriction PT: Yes Prognosis: Guarded Disposition: Continue medical management. Pending physical therapy evaluation and discharge planning with placement. Resident MD attestation: Patient was seen, examined and discussed with attending Dr. Awais MENDEZ MD Internal Medicine Resident, PGY2 [facility] Date of Service: Mar 17, 2025 Billing Provider: BRAYDEN CHRISTENSEN MD, TIN, RES Mar 17, 2025 19:19
[2025-03-17 20:00] VITALS: RESP 18; O2SAT 99
[2025-03-17] MEDS: pantoprazole 40mg Tablet.DR PO SCH (20:43)
[2025-03-17 22:00] VITALS: BP 71/41; PULSE 62; RESP 18; TEMP 98.4; O2SAT 98
[2025-03-18] VITALS (10 sets, daily range): BP systolic 72–90; BP diastolic 45–57; PULSE 73–78; RESP 12–20; TEMP 97.5–98; O2SAT 93–96
[2025-03-18 05:07] LABS: ABSOLUTE RETICS # 78400 /CUMM (23000-93000); BASOPHILS % (AUTO) 0.7 % (0-1); EOSINOPHILS # (AUTO) 0.2 X10'3 (0-0.9); EOSINOPHILS % (AUTO) 3.3 % (0-6); LYMPHOCYTES # (AUTO) 1.9 X10'3 (1.1-4.8); LYMPHOCYTES % (AUTO) 35.2 % (21-51); MEAN CORPUSCULAR HEMOGLOBIN 36.5 PG (27.0-31.0); MEAN CORPUSCULAR VOLUME 104.2 FL (78-98); MEAN PLATELET VOLUME 6.7 FL (7.4-10.4); MONOCYTES # (AUTO) 0.7 X10'3 (0-0.9); MONOCYTES % (AUTO) 13.6 % (2-12); NEUTROPHILS # (AUTO) 2.5 X10'3 (1.8-7.7); NEUTROPHILS % (AUTO) 47.2 % (42-75); PLATELET COUNT 84 X10'3 (140-440); RED BLOOD COUNT 1.91 X10'6 (4.20-5.60); RED CELL DISTRIBUTION WIDTH 21.1 % (11.5-14.5); RETICULOCYTE % (AUTO) 4.1 % (0.5-1.5); WHITE BLOOD COUNT 5.4 X10'3 (4.5-11.0)
[2025-03-18 05:19] LABS: INR 2.3 INR; PROTHROMBIN TIME 21.5 SECONDS (9.0-12.0)
[2025-03-18 05:42] LABS: ALANINE AMINOTRANSFERASE 17 U/L (12-78); ALBUMIN 2.6 G/DL (3.4-5.0); ALKALINE PHOSPHATASE 79 IU/L (46-116); ANION GAP 9 (8-16); ASPARTATE AMINO TRANSFERASE 49 U/L (10-37); BILIRUBIN,TOTAL 4.7 MG/DL (0.1-1.0); BLOOD UREA NITROGEN 8 MG/DL (7-18); BUN/CREATININE RATIO 6.5 (10.0-20.0); CALCIUM 8.4 MG/DL (8.5-10.1); CHLORIDE 101 MMOL/L (99-107); CREATININE 1.23 MG/DL (0.40-0.90); GLUCOSE 115 MG/DL (70-104); LACTATE DEHYDROGENASE 162 U/L (81-234); MAGNESIUM 1.8 MG/DL (1.5-2.4); POTASSIUM 3.6 MMOL/L (3.5-5.1); SODIUM 130 MMOL/L (135-145); TOTAL CARBON DIOXIDE 19.8 MMOL/L (24-32); eCRCL 44 ML/MIN; eGFR 45 ML/MIN
[2025-03-18 05:46] LABS: PHOSPHORUS 2.4 MG/DL (2.3-4.5); TOTAL PROTEIN 5.1 G/DL (6.4-8.2)
[2025-03-18] MEDS: albumin (human) 25% 100 ML IV solution IV ONE (07:37)
[2025-03-18 12:28] LABS: OCCULT BLOOD STOOL NEGATIVE (Neg)
--- NOTE | 2025-03-18 14:27 | CONSULTATION REPORT - RESIDENT ---
Consult Providers to CC Resident Creating Document: ALEXANDR FLOR CC: STELLA RUELAS MD History of Present Illness Reason for Admit\Complaint: Mechanical fall History of Present Illness Patient is 55-year-old female with history of alcoholic liver cirrhosis and ascites who was brought to the ED on 03/15/2025 after mechanical fall where she struck her head and right side of body. Patient was transferred from [facility] where she has been staying for the last 25 days. She reports that she got up to use the bathroom and she reports that it was dark and she tripped on something and fell hitting her right arm, right breast and right side of her head. On admission, imaging studies were negative for any acute brain, chest, abdominal or pelvic hemorrhage. However, patient was found to be significantly hypotensive, and with signs of ascites. Therefore, patient has been treated for decompensated liver cirrhosis and RADHA with possible hepatorenal syndrome. Yesterday she was found to be significantly anemic, which temporarily improved after transfusion of 1 unit of blood, however, today hemoglobin dropped again which raised concern of GI bleed reason why GI team was consulted. Patient denies any hematemesis or melena, abdominal pain or nausea. She states she has never had an EGD, but had a colonoscopy 3 years ago which was normal. She states her motorcycle racer is in [place] but she is not sure about his name. Allergies: Coded Allergies: acetaminophen (Verified Allergy, Unknown, 03/14/25) LIVER FAILURE Home Medications Home Medications Active Reported Senna (Sennosides) 8.6 Mg Tablet 2 Tab PO DAILY Vitamine B-1 (Thiamine Hcl) 100 Mg Tablet 1 Tab PO DAILY Trazodone HCl 50 Mg Tablet 1 Tab PO HS Tramadol Hcl (Tramadol HCl) 50 Mg Tablet 1 Tab PO TID PRN Spironolactone 25 Mg Tablet Escitalopram Oxalate 20 Mg Tablet 1 Tab PO DAILY Midodrine Hcl 10 Mg Tablet 1 Tab PO TID Folic Acid* (Folic Acid) Y Tab 1 Tab PO DAILY Past Medical History Past Medical History Alcoholic liver cirrhosis Ascites. Three paracentesis in the past month. Last one 2 weeks ago where 3 L were extracted. Past Surgical History Surgical History Comment Unspecified uterine surgery Past Social History Social History Comment Alcohol: Sober for 8 months. Used to drink 3-4 glasses of wine daily Denies smoking or recreational drugs Came from [facility] ROS ROS All systems were reviewed and found negative except for pertinent positives mentioned in HPI Exam Vitals: Vital Signs Date Time Temp Pulse Resp B/P (MAP) Pulse Ox O2 Delivery O2 Flow Rate FiO2 03/18/25 11:35 98.0 75 18 79/48 03/18/25 07:40 95 Room Air 03/17/25 20:00 General: General: awake, alert oriented to place, time, and person HEENT: She has some bruising on her right forehead and periorbital area. Marked pallor present, no icterus, moist mucous membranes Neck: No masses and tenderness Resp: Unlabored. Lungs clear to auscultation bilaterally. Chest: She has a large hematoma from the center of her chest, covering her whole right breast and extending to the chest wall passing the posterior axillary line on the right. She also has areas of induration of her right breast. The whole area is significantly tender Cardiovascular: Regular Rate and rhythm, normal S1 and S2 without murmur, rub or gallop Abdomen: Soft and non tender no organomegaly, no guarding and rigidity, bowel sounds present Neuro: No weakness in the upper and lower limb muscles, power of the muscles 5/5 bilateral upper and lower muscles, knee reflex present bilaterally. Cranial nerves intact Extremities: No cyanosis,clubbing or edema Skin: As above Diagnostic Data Last Recorded Lab Results: 03/18/25 0443 03/18/25 0443 Diagnostic Data: Laboratory Tests Test 03/17/25 05:17 03/18/25 04:43 Activated Partial Thromboplast Time 55 SECONDS (22-32) H Prothrombin Time 21.5 SECONDS (9.0-12.0) H INR International Normalized Ratio 2.3 INR Coagulation Comments Additional Plan Patient is 55-year-old female with history of alcoholic liver cirrhosis and ascites who was brought to the ED on 03/15/2025 after mechanical fall where she struck her head and right side of body. Patient was found to be significantly anemic, which temporarily improved after transfusion of 1 unit of blood, however, today hemoglobin dropped again which raised concern of GI bleed reason why GI team was consulted. Patient denies any hematemesis or melena, abdominal pain or nausea. She states she has never had an EGD, but had a colonoscopy 3 years ago which was normal. She states her motorcycle racer is in [place] but she is not sure about his name. Severe macrocytic anemia in the setting of alcoholic liver cirrhosis Large right chest wall hematoma, possibly expanding, 2/2 mechanical fall Hemoglobin was 8.4 on admission, down to 7 yesterday, temporarily improved after transfusion then down to 7 again today Occult blood is negative No hematemesis or melena Discussed patient in detail with Dr. Ruelas, who reports no need for EGD at this time since there is no sign of GI bleed Anemia could be secondary to expanding chest wall hematoma in view of significantly elevated INR. Consider further imaging and close monitoring of H&H Consider possible breast tissue necrosis. Patient may need surgical evaluation No further recommendations from GI standpoint Other comorbidities include: Decompensated alcohol liver cirrhosis with ascites and portal hypertension Hyperbilirubinemia; 5.4 Hypotension Hypokalemia Acute kidney injury from renal tubular stasis Hyperchromic Macrocytic anemia Left-sided pleural effusion Right middle lobe and right lateral lobe atelectasis Continue management per primary team Alexandr Kelly MD Internal Medicine Resident PGY-1 Date of Service: Mar 18, 2025 Billing Provider: STELLA RUELAS MD, LEONARDO LUIS Mar 18, 2025 14:27
[2025-03-18] MEDS ORDERED: iohexol 300mg/ml 100ml inj. ONE (16:36)
--- NOTE | 2025-03-18 16:57 | PROGRESS NOTE- Residence ---
Progress Note - Resident Providers to CC Resident Creating Document: GREGORIO SOLANO RES ~ Antibiotic Timeout Antibiotic Ordered?: Yes Subjective pt did not report for any obvious bleeding at the moment. Her Hb was dropping down from 8.1 to 7 last night, 2 units of PRBC's and one time albumin infusion were ordered. Pt stated that she dose not have any family in [place] to stay after discharged, only step mom or sister who are not close her Objective Vital Signs Date Time Temp Pulse Resp B/P (MAP) Pulse Ox O2 Delivery O2 Flow Rate FiO2 03/18/25 13:20 97.8 76 16 82/48 03/18/25 07:40 95 Room Air 03/17/25 20:00 Result Diagram: 03/18/2544203/18/25442 Vitals were stable at the moment with temp 97.6 F, KS 73/minute, RR the thin/minute, BP 72/45 mm Hg, pulse oximetry 95% on room air. On exam, General: Well alert, well oriented, not confused, not agitated, not in acute distress, well cooperated during the physical. HEENT: Conjunctive are pink, sclerae clear, no icterus, pupil is equal in both sides, reactive to light, no ear discharge, no pharyngeal erythema or an edema, mouth and lips are dry. Neck: Supple, no JVD, no lymphadenopathy and thyromegaly. 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: No focal neurological deficits, no motor and sensory weakness in all 4 extremities, could move all 4 extremities Musculoskeletal: No joint swelling, deformities, inflammations, and no scoliosis and back tenderness Skin: No active skin lesions and rashes Coagulation Studies Laboratory Tests Test 03/17/25 05:17 03/18/25 04:43 Activated Partial Thromboplast Time 55 SECONDS (22-32) H Prothrombin Time 21.5 SECONDS (9.0-12.0) H INR International Normalized Ratio 2.3 INR Coagulation Comments Assessment Assessment Patient is a 55-year-old female with a history of decompensated alcoholic liver cirrhosis, sober for eight months, currently waiting for transplant evaluation appointment. She was transferred from [facility] after a fall enroute to the bathroom. She denies any new complaints this morning. No panic separate the IV insertion site in the right forearm. Reports constipation since yesterday. Plan Plan Decompensated alcohol liver cirrhosis with ascites and portal hypertension Hyperbilirubinemia; 5.4 Hypotension Hypokalemia MELD score is 26. Consulted w/ GI, Dr Ruelas, and appreciate it, recommended to find the other sourced of bledding where the Esophageal varices bleeding should not be the source with FOBT negative. Bladder scan and to proceed with straight catheterization if Residual >600cc. Continue w/ Rehab Rn appointment Last time paracentesis 6L extraction was done on March 13 at [facility] Continue Lactulose for constipation Continue Propranolol, IV Ceftriaxone, and salt restriction 2g daily AFP WNL Acute kidney injury from renal tubular stasis Continue ensure to b.i.d. from t.i.d. with meals Low serum osmolality, pending urine lytes Less likely hepatorenal syndrome Creatinine gradually normalizing to her baseline Continue daily monitoring Hyperchromic Macrocytic anemia High retic count and normal LDH ruled out possible B12 deficiency Ordered CT chest w/ or w/o IV contrast -90cc only with eGFR 45 and Cr 1.23 and Bwt of 121 lb as per oncall radiologist recommendation today, to rule out the source of bleeding from the chest wall hematoma H&H Q6Hrs Continue Thiamine, folate, multivitamins 2 units PRBC transfused were given Left-sided pleural effusion Right middle lobe and right lateral lobe atelectasis Given insensitive spirometry Lasix after she becomes hemodynamically stable, still on soft side Rocephin 1 mg IV daily for suspected bacterial infection; Gram-positive and Gram-negative coverage Mechanical fall Right breast bruising Cervical spine showed no fracture or dislocation on CT. Head CT negative for any hemorrhage. Cervical collar okay to remove Ice pack for right breast pain Code Status: Full code DVT prophylaxis: SCDs Nutrition: Regular with 2 g sodium restriction PT: Yes Prognosis: Guarded Disposition: Continue medical management. Pending physical therapy evaluation and discharge planning with placement possible out of [place] area. Resident MD attestation: Patient was seen, examined and discussed with attending MD, Dr. Awais SOLANO MD Internal Medicine Resident, PGY2 [facility] Date of Service: Mar 18, 2025 Billing Provider: BRAYDEN CHRISTENSEN MD, TIN, RES Mar 18, 2025 16:57
--- NOTE | 2025-03-18 18:15 | RADIOLOGY REPORT ---
Indication: Pt is having Hb dropping down to detect the bleeding hematoma Technique: CT axial images of the chest are obtained with and without intravenous contrast. Coronal a nd sagittal reformats were obtained. Radiation Dose Information: CTDI volume is 15.3 mGy. Dose-length product is 1128 mGy*cm Comparison: 03/14/2025 FINDINGS: Trachea patent. No pneumothorax. Scattered bilateral pulmonary ground-glass opacities which have increased in the interval. Bilateral pulmonary airspace consolidation and atelectasis most pronounced within the right lower lobe, left up per and lower lobes. There is a moderate size left pleural effusion similar to the previous examinati on. Heart size at the upper limits of normal. Small pericardial effusion. Right hilar lymph node measuri ng 1.4 cm. Pretracheal lymph node measuring 10 mm. No supraclavicular or axillary lymphadenopathy. Soft tissue edema / anasarca. The visualized portion of the upper abdomen demonstrates a large volume of ascites fluid. Gastric dis tention. Cirrhotic morphology liver. Recanalized umbilical vein. Gastric varices. Santizo mm T11 vertebral body lytic lesion. IMPRESSION: 1. No intrathoracic hematoma identified. 2. Bilateral pulmonary airspace consolidation atelectasis, [id number]-right. 3. Moderate size left pleural effusion. This is similar to previous examination. Tiny right pleural effusion. 4. The visualized portion of the upper abdomen demonstrate cirrhotic morphology liver, sequela of por yan hypertension, large volume of ascites fluid. Gastric distention. 5. Soft tissue edema / anasarca. 6. Interval development of bilateral pulmonary ground-glass opacities which can be secondary to edema , infection inflammatory etiologies. 7. An 11 mm T11 lytic lesion with differential considerations including metastases, myeloma, inteross eous hemangioma , bone cysts. 8. Other findings as described.
[2025-03-18 20:52] LABS: HEMATOCRIT 25.8 % (35.0-45.0); MEAN CORPUSCULAR HEMOGLOBIN 33.7 PG (27.0-31.0); MEAN CORPUSCULAR HGB CONC 34.8 g/dL (33.0-36.5); MEAN CORPUSCULAR VOLUME 96.7 FL (78-98); MEAN PLATELET VOLUME 6.8 FL (7.4-10.4); PLATELET COUNT 88 X10'3 (140-440); RED BLOOD COUNT 2.67 X10'6 (4.20-5.60); RED CELL DISTRIBUTION WIDTH 25.8 % (11.5-14.5)
[2025-03-19 06:00] VITALS: BP 81/49; PULSE 75; RESP 15; TEMP 97.3; O2SAT 92
[2025-03-19 07:30] VITALS: RESP 18; O2SAT 92
[2025-03-19 10:58] LABS: BASOPHILS # (AUTO) 0.1 X10'3 (0-0.2); BASOPHILS % (AUTO) 0.9 % (0-1); EOSINOPHILS # (AUTO) 0.1 X10'3 (0-0.9); EOSINOPHILS % (AUTO) 2.4 % (0-6); HEMATOCRIT 24.9 % (35.0-45.0); HEMOGLOBIN 8.7 g/dl (12.0-16.0); LYMPHOCYTES # (AUTO) 1.5 X10'3 (1.1-4.8); LYMPHOCYTES % (AUTO) 23.8 % (21-51); MEAN CORPUSCULAR HEMOGLOBIN 34.1 PG (27.0-31.0); MEAN CORPUSCULAR HGB CONC 34.9 g/dL (33.0-36.5); MEAN CORPUSCULAR VOLUME 97.8 FL (78-98); MEAN PLATELET VOLUME 6.9 FL (7.4-10.4); MONOCYTES % (AUTO) 15.6 % (2-12); NEUTROPHILS # (AUTO) 3.7 X10'3 (1.8-7.7); NEUTROPHILS % (AUTO) 57.3 % (42-75); PLATELET COUNT 79 X10'3 (140-440); RED BLOOD COUNT 2.55 X10'6 (4.20-5.60); RED CELL DISTRIBUTION WIDTH 26.3 % (11.5-14.5); WHITE BLOOD COUNT 6.4 X10'3 (4.5-11.0)
[2025-03-19 11:12] LABS: PROTHROMBIN TIME 19.3 SECONDS (9.0-12.0)
[2025-03-19 11:18] LABS: ALANINE AMINOTRANSFERASE 20 U/L (12-78); ALBUMIN 3.2 G/DL (3.4-5.0); ALKALINE PHOSPHATASE 74 IU/L (46-116); ANION GAP 12 (8-16); ASPARTATE AMINO TRANSFERASE 44 U/L (10-37); BILIRUBIN,TOTAL 7.7 MG/DL (0.1-1.0); BLOOD UREA NITROGEN 10 MG/DL (7-18); BUN/CREATININE RATIO 9.1 (10.0-20.0); CALCIUM 9.2 MG/DL (8.5-10.1); CHLORIDE 102 MMOL/L (99-107); GLUCOSE 137 MG/DL (70-104); POTASSIUM 3.7 MMOL/L (3.5-5.1); SODIUM 136 MMOL/L (135-145); TOTAL CARBON DIOXIDE 21.9 MMOL/L (24-32); eCRCL 49 ML/MIN; eGFR 51 ML/MIN
[2025-03-19 11:25] LABS: ALBUMIN/GLOBULIN RATIO 1.3 (1.1-1.5); PHOSPHORUS 2.8 MG/DL (2.3-4.5); TOTAL PROTEIN 5.7 G/DL (6.4-8.2)
[2025-03-19 11:42] LABS: ANISOCYTOSIS 3+; PLATELET ESTIMATE DECREASED; TOTAL CELLS COUNTED 100
[2025-03-19 11:44] LABS: BURR CELLS FEW; POLYCHROMASIA FEW
--- NOTE | 2025-03-19 12:22 | PROGRESS NOTE- Residence ---
Progress Note - Resident Providers to CC Resident Creating Document: RUSSDEXTER PERKINS ~ Antibiotic Timeout Antibiotic Ordered?: Yes Subjective She received 2 units of PRBC's yesterday and a today hemoglobin jumped up to 9. She has no special complaint at the moment. She was explained about the the nature of her disease course, recent imaging changes, and currently awaiting for the placement since [facility] is not planning to take her back. Objective Vital Signs Date Time Temp Pulse Resp B/P (MAP) Pulse Ox O2 Delivery O2 Flow Rate FiO2 03/19/25 07:30 18 92 Room Air 03/19/25 06:00 97.3 75 81/49 (60) 03/17/25 20:00 Result Diagram: 03/19/25 1037 03/19/25 1037 Vitals were stable at the moment. On exam, General: Well alert, well oriented, not confused, not agitated, not in acute distress, well cooperated during the physical. HEENT: Conjunctive are pink, sclerae clear, no icterus, pupil is equal in both sides, reactive to light, no ear discharge, no pharyngeal erythema or an edema, mouth and lips are dry. Neck: Supple, no JVD, no lymphadenopathy and thyromegaly. 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: No focal neurological deficits, no motor and sensory weakness in all 4 extremities, could move all 4 extremities Musculoskeletal: No joint swelling, deformities, inflammations, and no scoliosis and back tenderness Skin: No active skin lesions and rashes Coagulation Studies Laboratory Tests Test 03/17/25 05:17 03/19/25 10:37 Activated Partial Thromboplast Time 55 SECONDS (22-32) H Prothrombin Time 19.3 SECONDS (9.0-12.0) H INR International Normalized Ratio 2.0 INR Coagulation Comments Assessment Assessment Patient is a 55-year-old female with a history of decompensated alcoholic liver cirrhosis, sober for eight months, currently waiting for transplant evaluation appointment. She was transferred from [facility] after a fall enroute to the bathroom. She denies any new complaints this morning. No panic separate the IV insertion site in the right forearm. Reports constipation since yesterday. Plan Plan # Decompensated alcohol liver cirrhosis with ascites and portal hypertension # Hyperbilirubinemia; 5.4 # Hypotension # Hypokalemia # MELD score is 26. Electrolytes within normal limit, her bilirubin is up trending. Consulted w/ GI, Dr Ruelas and no concern for the GI bleeding at that moment. Bladder scan and to proceed with straight catheterization if Residual >600cc. Continue w/ [facility] appointment Last time paracentesis 6L extraction was done on March 13 at [facility] Continue Lactulose for constipation Continue Propranolol, IV Ceftriaxone, and salt restriction 2g daily AFP WNL CT Chest w/ IV Contrast on 03/18/25 showed IMPRESSION: 1. No intrathoracic hematoma identified. 2. Bilateral pulmonary airspace consolidation atelectasis, [id number]-right. 3. Moderate size left pleural effusion. This is similar to previous examination. Tiny right pleural effusion. 4. The visualized portion of the upper abdomen demonstrate cirrhotic morphology liver, sequela of portal hypertension, large volume of ascites fluid. Gastric distention. 5. Soft tissue edema / anasarca. 6. Interval development of bilateral pulmonary ground-glass opacities which can be secondary to edema, infection inflammatory etiologies. 7. An 11 mm T11 lytic lesion with differential considerations including metastases, myeloma, interosseous hemangioma , bone cysts. # Acute kidney injury from renal tubular stasis Continue monitoring I's and O's Continue ensure to b.i.d. from t.i.d. with meals Low serum osmolality, pending urine lytes Less likely hepatorenal syndrome Creatinine gradually normalizing to her baseline # Hyperchromic Macrocytic anemia High retic count and normal LDH ruled out possible B12 deficiency H&H Q6Hrs Continue Thiamine, folate, multivitamins 3 units PRBC transfused were given # Left-sided pleural effusion # Right middle lobe and right lateral lobe atelectasis Given insensitive spirometry Lasix after she becomes hemodynamically stable, still on soft side Rocephin 1 mg IV daily for suspected bacterial infection; Gram-positive and Gram-negative coverage # Mechanical fall # Right breast bruising Cervical spine showed no fracture or dislocation on CT. Head CT negative for any hemorrhage. No more on Cervical collar. Ice pack for right breast pain Code Status: Full code DVT prophylaxis: SCDs Nutrition: Regular with 2 g sodium restriction PT: Yes Prognosis: Guarded Disposition: Continue medical management. Pending physical therapy evaluation which she refused to have one today, and discharge planning with placement possible out of RDD area. Resident MD attestation: Patient was seen, examined and discussed with attending MD, Dr. Joey SOLANO MD Internal Medicine Resident, PGY2 [facility] Addendum Patient was seen in her room in presence of nursing staff and resident today. She is unchanged since I saw her in [facility] rehab. I do not feel patient is hallucinating or confused she answered all questions appropriately. Patient's CT scan chest and CT scan abdomen pelvis and chest to which was done with IV contrast recently, results discussed with the patient. Patient is aware about her cirrhosis of liver and rest of the comorbidities. She needs placement in other rehab. Date of Service: Mar 19, 2025 Billing Provider: YAMILETH AMADOR MD Common Visit Codes: [id number] INP/OBS CARE(HIGH) GREGORIO SOLANO RES Mar 19, 2025 12:21 YAMILETH AMADOR MD Mar 19, 2025 18:25
[2025-03-19 18:00] VITALS: BP 120/62; PULSE 74; RESP 18; TEMP 98.7; O2SAT 94
[2025-03-19 20:00] VITALS: O2SAT 9
[2025-03-19 22:00] VITALS: BP 83/50; PULSE 74; RESP 16; TEMP 98.2; O2SAT 94
[2025-03-20 04:54] LABS: BASOPHILS % (AUTO) 0.7 % (0-1); EOSINOPHILS # (AUTO) 0.1 X10'3 (0-0.9); EOSINOPHILS % (AUTO) 2.8 % (0-6); HEMATOCRIT 24.4 % (35.0-45.0); HEMOGLOBIN 8.5 g/dl (12.0-16.0); LYMPHOCYTES # (AUTO) 1.3 X10'3 (1.1-4.8); LYMPHOCYTES % (AUTO) 25.9 % (21-51); MEAN CORPUSCULAR HGB CONC 34.7 g/dL (33.0-36.5); MEAN CORPUSCULAR VOLUME 97.9 FL (78-98); MEAN PLATELET VOLUME 6.7 FL (7.4-10.4); MONOCYTES # (AUTO) 0.7 X10'3 (0-0.9); MONOCYTES % (AUTO) 14.3 % (2-12); NEUTROPHILS # (AUTO) 2.9 X10'3 (1.8-7.7); NEUTROPHILS % (AUTO) 56.3 % (42-75); PLATELET COUNT 79 X10'3 (140-440); RED BLOOD COUNT 2.49 X10'6 (4.20-5.60); RED CELL DISTRIBUTION WIDTH 25.6 % (11.5-14.5); WHITE BLOOD COUNT 5.2 X10'3 (4.5-11.0)
[2025-03-20 05:10] LABS: ALANINE AMINOTRANSFERASE 16 U/L (12-78); ALBUMIN 2.9 G/DL (3.4-5.0); ALKALINE PHOSPHATASE 73 IU/L (46-116); ANION GAP 10 (8-16); ASPARTATE AMINO TRANSFERASE 45 U/L (10-37); BILIRUBIN,TOTAL 6.5 MG/DL (0.1-1.0); BLOOD UREA NITROGEN 10 MG/DL (7-18); BUN/CREATININE RATIO 9.2 (10.0-20.0); CALCIUM 8.9 MG/DL (8.5-10.1); CHLORIDE 104 MMOL/L (99-107); CREATININE 1.09 MG/DL (0.40-0.90); GLUCOSE 118 MG/DL (70-104); POTASSIUM 3.7 MMOL/L (3.5-5.1); SODIUM 136 MMOL/L (135-145); TOTAL CARBON DIOXIDE 21.8 MMOL/L (24-32); eCRCL 49 ML/MIN; eGFR 52 ML/MIN
[2025-03-20 05:11] LABS: ALBUMIN/GLOBULIN RATIO 1.2 (1.1-1.5); TOTAL PROTEIN 5.3 G/DL (6.4-8.2)
[2025-03-20 05:15] LABS: APTT 48 SECONDS (22-32); FIBRINOGEN 78 MG/DL (177-424)
[2025-03-20 06:00] VITALS: BP 80/40; PULSE 78; RESP 16; TEMP 98.1; O2SAT 91
[2025-03-20 07:30] VITALS: RESP 18
[2025-03-20] MEDS: spironolactone 25 MG tablet PO SCH (08:30)
--- NOTE | 2025-03-20 11:39 | VASCULAR REPORT ---
Bilateral lower extremity venous duplex Clinical History: Swelling, pain Comparison: None Technique: Duplex Doppler evaluation of the deep venous systems of both lower extremities from the common femora l veins to the popliteal veins including color Doppler and spectral/pulsed waveform analysis was perf ormed. Findings: RIGHT SIDE: The common femoral vein demonstrates appropriate compressibility and waveform variability. There is compressibility/patency of the great saphenous vein at the proximal thigh. The femoral vein demonstrates appropriate compressibility and waveform variability. The deep femoral vein demonstrates appropriate compressibility and waveform variability. The popliteal vein demonstrates appropriate compressibility and waveform variability. There is normal compressibility at the tibioperoneal trunk. LEFT SIDE: The common femoral vein demonstrates appropriate compressibility and waveform variability. There is compressibility/patency of the great saphenous vein at the proximal thigh. The femoral vein demonstrates appropriate compressibility and waveform variability. The deep femoral vein demonstrates appropriate compressibility and waveform variability. The popliteal vein demonstrates appropriate compressibility and waveform variability. There is normal compressibility at the tibioperoneal trunk. Impression: No right or left femoropopliteal venous thrombosis.
[2025-03-20 15:35] VITALS: BP 87/54
[2025-03-20 18:00] VITALS: BP 87/54; PULSE 80; RESP 15; TEMP 98.2; O2SAT 96
[2025-03-20] MEDS ORDERED: iohexol 350MG/ML 100ml bottle IV ONE (19:40)
--- NOTE | 2025-03-20 19:48 | PROGRESS NOTE- Residence ---
Progress Note - Resident Providers to CC Resident Creating Document: TERRY STILL, RES ~ Antibiotic Timeout Antibiotic Ordered?: No Subjective The patient has been evaluated at the bedside. Patient's son and patient showing concerned about discharge plan. All the questions were answered in the best of my knowledge. The patient is currently complaining of some cramps in the abdomen. As per patient is better than before when she was with ascites. Objective Vital Signs Date Time Temp Pulse Resp B/P (MAP) Pulse Ox O2 Delivery O2 Flow Rate FiO2 03/20/25 15:35 87/54 (65) 03/20/25 08:30 74 03/20/25 07:30 18 Room Air 03/20/25 06:00 98.1 91 03/17/25 20:00 Physical exam: General: Well alert, well oriented, not confused, not agitated, not in acute distress, well cooperated during the physical. HEENT: Conjunctive are pale, icteric sclerae, pupil is equal in both sides, reactive to light, no ear discharge, no pharyngeal erythema or an edema, presence of hematomas in bilateral eyes. Neck: Supple, no JVD, no lymphadenopathy and thyromegaly. Chest: Decreased air entry in the left base of the thorax. No wheezing or rhonchi auscultated. Presence of bruising in the right side of the chest, tender to palpation. Cardiovascular: S1-S2 regular sinus rhythm and, regular rate, no gallops, no rubs, no murmurs. Abdomen: No visible peristalsis, Bowel sounds present on auscultation, soft, no guarding, no rigidity, mildly distended. Extremities: No obvious deformities, no pitting edema bilaterally, capillary refill intact, peripheral pulsations are intact on both sides Central Nervous System: No focal neurological deficits, no motor or sensory weakness in all 4 extremities, could move all 4 extremities, 2+ deep tendon reflexes, negative Babinski. Musculoskeletal: No joint swelling, deformities, inflammations, and no scoliosis and back tenderness Skin: Warm and dry. Result Diagram: 03/20/25 0436 03/20/25 0436 Coagulation Studies Laboratory Tests Test 03/19/25 10:37 03/20/25 04:36 Prothrombin Time 19.3 SECONDS (9.0-12.0) H INR International Normalized Ratio 2.0 INR Activated Partial Thromboplast Time 48 SECONDS (22-32) H Fibrinogen 78 MG/DL (177-424) L D-Dimer 18.30 MG/L FEU (0-0.50) H D-Dimer Comment Coagulation Comments Coagulation Clinical Comments Assessment Assessment Patient is a 55-year-old female with a history of decompensated alcoholic liver cirrhosis, sober for eight months, currently waiting for transplant evaluation appointment. She was transferred from [facility] after a fall when she was walking to the restroom, as per patient she tripped. Plan Plan Decompensated alcohol liver cirrhosis with ascites and portal hypertension Hyperbilirubinemia: Hypotension: Hypokalemia-resolved: MELD score is 24, child Pug score class C: Electrolytes within normal limit, her bilirubin is up trending. Consulted w/ GI, Dr Ruelas and no concern for the GI bleeding at that moment. Bladder scan and to proceed with straight catheterization if Residual >600cc. 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 No intrathoracic hematoma identified. 2. Bilateral pulmonary airspace consolidation atelectasis, [id number]-right. 3. Moderate size left pleural effusion. This is similar to previous examination. Tiny right pleural effusion. 4. The visualized portion of the upper abdomen demonstrate cirrhotic morphology liver, sequela of portal hypertension, large volume of ascites fluid. Gastric distention. 5. Soft tissue edema / anasarca. 6. Interval development of bilateral pulmonary ground-glass opacities which can be secondary to edema, infection inflammatory etiologies. 7. An 11 mm T11 lytic lesion with differential considerations including metastases, myeloma, interosseous hemangioma , bone cysts. 03/20/2025: Current meld Na score: 24 points, 14-15% estimated 90 day mortality. Child Verdin score class C: Life expectancy: 1-3 years, abdominal surgery светлана-operative mortality: 82%. Continue lactulose 20 g b.i.d. Acute kidney injury from renal tubular stasis Continue monitoring I's and O's Continue ensure to b.i.d. from t.i.d. with meals Low serum osmolality, pending urine lytes Less likely hepatorenal syndrome Creatinine gradually normalizing to her baseline 03/20/2025: Creatinine trending down, GFR improving. We will continue monitoring CMP. Hyperchromic Macrocytic anemia High retic count and normal LDH ruled out possible B12 deficiency H&H Q6Hrs Continue Thiamine, folate, multivitamins 3 units PRBC transfused were given 03/20/2025: Current hemoglobin and hematocrit stable. The patient had received 3 units of blood so far. Transfuse if hemoglobin levels dropped below seven. Left-sided pleural effusion: Right middle lobe and right lateral lobe atelectasis: Given insensitive spirometry Lasix after she becomes hemodynamically stable, still on soft side. Mechanical fall Right breast bruising Cervical spine showed no fracture or dislocation on CT. Head CT negative for any hemorrhage. No more on Cervical collar. Ice pack for right breast pain Code status: Full code DVT prophylaxis: SCDs Analgesia/sedation: None Line/tube: PIV GI prophylaxis: None Nutrition: Regular rate PT: Recommends post-acute care. Prognosis: Guarded Disposition: We will continue medical therapy. Patient does not want to be transferred to [facility]. Case management actively working for post-acute care. Terry Velarde Internal Medicine Resident [facility] Date of Service: Mar 20, 2025 Billing Provider: FELICIANO URIAS MD Common Visit Codes: [id number] INP/OBS CARE(HIGH) TERRY STILL, RES Mar 20, 2025 19:48 FELICIANO URIAS MD Mar 21, 2025 22:06
[2025-03-20 20:00] VITALS: RESP 15; O2SAT 96
[2025-03-20] MEDS ORDERED: rifaximin 550mg tablet PO SCH (20:00)
[2025-03-20] MEDS ORDERED: traZODone 50mg tablet PO PRN (20:05)
--- NOTE | 2025-03-20 20:59 | RADIOLOGY REPORT ---
CTA Chest with intravenous contrast INDICATION: elevated D- dimer COMPARISON: None TECHNIQUE: Multidetector spiral CTA of the chest was performed of the chest with intravenous contrast . PULMONARY ANGIOGRAPHY PROTOCOL was utilized using a bolus-tracking technique centered on the main p ulmonary artery. Axial, coronal and sagittal multiplanar and MIP reformats were performed. CONTRAST: Type of contrast: Omni 350 Contrast injected: 100 ml Radiation dose : Chest: CTDI volume is 8 mGy. Dose-length product is 359 mGy*cm The dose indicators for CT are the volume computed Tomography (CT) dose Index (CTDIvol) and the dose Length product (DLP), and are measured in units of mGy and mGy-cm, respectively. These indicators are not patient dose, but values generated from the CT scanner acquisition factors. The report includes radiation exposure data for exposures received during this examination. Findings: Pulmonary artery: No pulmonary embolism Lower neck: Normal thyroid. Lungs: Patchy ground-glass opacity in the right upper lung. Atelectasis and consolidation in the left mid to lower lung. Atelectasis/ consolidation in the right lower lung. Heart/Vascular Structures: Normal heart size. No pericardial effusion. Lymph Nodes: Mediastinal and hilar lymphadenopathy. Pleura: Large left pleural effusion. Musculoskeletal: Lucent lesion in T11 again noted. Soft tissues: Anasarca. Upper abdomen: Cirrhotic liver morphology. Large amount of abdominal ascites. IMPRESSION: 1. No pulmonary embolism. 2. Large left pleural effusion with associated atelectasis consolidation. Patchy airspace disease in the right upper and lower lungs. Mediastinal and hilar lymphadenopathy. Superimposed infectious/ infl ammatory process is not excluded. Clinical correlation and continued follow-up is recommended. 3. Cirrhotic liver morphology. Large amount of abdominal ascites. Consider dedicated imaging of the abdomen. Lucent lesion in T11 again noted. HS:Y
[2025-03-20] MEDS: traZODone 50mg tablet PO PRN (21:03)
[2025-03-20 22:00] VITALS: BP 81/50; PULSE 79; RESP 16; TEMP 98.9; O2SAT 93
[2025-03-21] VITALS (8 sets, daily range): BP systolic 77–102; BP diastolic 44–62; PULSE 81–89; RESP 14–18; TEMP 98.1–99; O2SAT 90–96
[2025-03-21 07:23] LABS: BASOPHILS % (AUTO) 0.7 % (0-1); EOSINOPHILS # (AUTO) 0.1 X10'3 (0-0.9); EOSINOPHILS % (AUTO) 2.5 % (0-6); HEMATOCRIT 23.5 % (35.0-45.0); HEMOGLOBIN 8.3 g/dl (12.0-16.0); LYMPHOCYTES # (AUTO) 1.5 X10'3 (1.1-4.8); LYMPHOCYTES % (AUTO) 29.5 % (21-51); MEAN CORPUSCULAR HEMOGLOBIN 34.8 PG (27.0-31.0); MEAN CORPUSCULAR HGB CONC 35.1 g/dL (33.0-36.5); MEAN CORPUSCULAR VOLUME 98.9 FL (78-98); MEAN PLATELET VOLUME 6.9 FL (7.4-10.4); MONOCYTES # (AUTO) 0.8 X10'3 (0-0.9); MONOCYTES % (AUTO) 16.2 % (2-12); NEUTROPHILS # (AUTO) 2.6 X10'3 (1.8-7.7); NEUTROPHILS % (AUTO) 51.1 % (42-75); PLATELET COUNT 86 X10'3 (140-440); RED BLOOD COUNT 2.37 X10'6 (4.20-5.60); RED CELL DISTRIBUTION WIDTH 25.2 % (11.5-14.5); WHITE BLOOD COUNT 5.1 X10'3 (4.5-11.0)
[2025-03-21 07:30] LABS: ALANINE AMINOTRANSFERASE 15 U/L (12-78); ALBUMIN 2.8 G/DL (3.4-5.0); ALKALINE PHOSPHATASE 71 IU/L (46-116); ANION GAP 9 (8-16); ASPARTATE AMINO TRANSFERASE 47 U/L (10-37); BLOOD UREA NITROGEN 8 MG/DL (7-18); BUN/CREATININE RATIO 8.9 (10.0-20.0); CALCIUM 8.8 MG/DL (8.5-10.1); CHLORIDE 104 MMOL/L (99-107); GLUCOSE 107 MG/DL (70-104); POTASSIUM 3.7 MMOL/L (3.5-5.1); SODIUM 137 MMOL/L (135-145); TOTAL CARBON DIOXIDE 23.8 MMOL/L (24-32); eCRCL 60 ML/MIN; eGFR 65 ML/MIN
[2025-03-21 07:31] LABS: ALBUMIN/GLOBULIN RATIO 1.2 (1.1-1.5); TOTAL PROTEIN 5.2 G/DL (6.4-8.2)
--- NOTE | 2025-03-21 13:40 | PROGRESS NOTE- Residence ---
Progress Note - Resident Providers to CC Resident Creating Document: TERRY STILL, RES ~ Antibiotic Timeout Antibiotic Ordered?: No Subjective The patient has been evaluated at the bedside. The patient's son at the bedside, explained in detail about discharge plan. The patient doing well with physical therapy. Planned paracentesis and thoracentesis today. Objective Vital Signs Date Time Temp Pulse Resp B/P (MAP) Pulse Ox O2 Delivery O2 Flow Rate FiO2 03/21/25 11:33 82 03/21/25 10:00 98.9 18 77/44 (55) 93 Room Air 03/17/25 20:00 Physical exam: General: Well alert, well oriented, not confused, not agitated, not in acute distress, well cooperated during the physical. HEENT: Conjunctive are pale, icteric sclerae, pupil is equal in both sides, reactive to light, no ear discharge, no pharyngeal erythema or an edema, presence of hematomas in bilateral eyes. Neck: Supple, no JVD, no lymphadenopathy and thyromegaly. Chest: Decreased air entry in the left base of the thorax. No wheezing or rhonchi auscultated. Presence of bruising in the right side of the chest, tender to palpation. Cardiovascular: S1-S2 regular sinus rhythm and, regular rate, no gallops, no rubs, no murmurs. Abdomen: No visible peristalsis, Bowel sounds present on auscultation, soft, no guarding, no rigidity, mildly distended. Extremities: No obvious deformities, no pitting edema bilaterally, capillary refill intact, peripheral pulsations are intact on both sides Central Nervous System: No focal neurological deficits, no motor or sensory weakness in all 4 extremities, could move all 4 extremities, 2+ deep tendon reflexes, negative Babinski. Musculoskeletal: No joint swelling, deformities, inflammations, and no scoliosis and back tenderness Skin: Warm and dry. Result Diagram: 03/21/25 0617 03/21/25 0617 Coagulation Studies Laboratory Tests Test 03/19/25 10:37 03/20/25 04:36 Prothrombin Time 19.3 SECONDS (9.0-12.0) H INR International Normalized Ratio 2.0 INR Activated Partial Thromboplast Time 48 SECONDS (22-32) H Fibrinogen 78 MG/DL (177-424) L D-Dimer 18.30 MG/L FEU (0-0.50) H D-Dimer Comment Coagulation Comments Coagulation Clinical Comments Assessment Assessment Patient is a 55-year-old female with a history of decompensated alcoholic liver cirrhosis, sober for eight months, currently waiting for transplant evaluation appointment. She was transferred from [facility] after a fall when she was walking to the restroom, as per patient she tripped. Plan Plan Decompensated alcohol liver cirrhosis with ascites and portal hypertension: Meld Na score: 24 points, 14-15% estimated 90 day mortality. Child Verdin score class C: Life expectancy: 1-3 years, abdominal surgery светлана-operative mortality: 82%. Hyperbilirubinemia: Hypotension: Hypokalemia-resolved: Electrolytes within normal limit, her bilirubin is up trending. Consulted w/ GI, Dr Ruelas and no concern for the GI bleeding at that moment. Bladder scan and to proceed with straight catheterization if Residual >600cc. Continue w/ [place] appointment Last time paracentesis 6L extraction was done on March 13 at [facility] Continue Lactulose for constipation Continue Propranolol, IV Ceftriaxone, and salt restriction 2g daily AFP WNL CT Chest w/ IV Contrast on 03/18/25 showed IMPRESSION: 1. No intrathoracic hematoma identified. 2. Bilateral pulmonary airspace consolidation atelectasis, [id number]-[id number]-right. 3. Moderate size left pleural effusion. This is similar to previous examination. Tiny right pleural effusion. 4. The visualized portion of the upper abdomen demonstrate cirrhotic morphology liver, sequela of portal hypertension, large volume of ascites fluid. Gastric distention. 5. Soft tissue edema / anasarca. 6. Interval development of bilateral pulmonary ground-glass opacities which can be secondary to edema, infection inflammatory etiologies. 7. An 11 mm T11 lytic lesion with differential considerations including metastases, myeloma, interosseous hemangioma , bone cysts. 03/20/2025: Current meld Na score: 24 points, 14-15% estimated 90 day mortality. Child Verdin score class C: Life expectancy: 1-3 years, abdominal surgery светлана-operative mortality: 82%. Continue lactulose 20 g b.i.d. 03/21/2025: CT a of the chest showing large left pleural effusion with associated atelectasis consolidation. Also showing large amount of abdominal ascites. Plan to perform thoracentesis and paracentesis. Given 200 mL of albumin. Acute kidney injury from renal tubular stasis Continue monitoring I's and O's Continue ensure to b.i.d. from t.i.d. with meals Low serum osmolality, pending urine lytes Less likely hepatorenal syndrome Creatinine gradually normalizing to her baseline 03/20/2025: Creatinine trending down, GFR improving. We will continue monitoring CMP. 03/21/2025: Kidney function within reference range. We will continue monitoring CMP. Hyperchromic Macrocytic anemia High retic count and normal LDH ruled out possible B12 deficiency H&H Q6Hrs Continue Thiamine, folate, multivitamins 3 units PRBC transfused were given 03/20/2025: Current hemoglobin and hematocrit stable. The patient had received 3 units of blood so far. Transfuse if hemoglobin levels dropped below seven. 03/21/2025: Hemoglobin and hematocrit remained stable. Left-sided pleural effusion: Right middle lobe and right lateral lobe atelectasis: Given insensitive spirometry Lasix after she becomes hemodynamically stable, still on soft side. Mechanical fall Right breast bruising Cervical spine showed no fracture or dislocation on CT. Head CT negative for any hemorrhage. No more on Cervical collar. Ice pack for right breast pain Code status: Full code DVT prophylaxis: SCDs Analgesia/sedation: None Line/tube: PIV GI prophylaxis: None Nutrition: Regular rate PT: Recommends post-acute care. Prognosis: Guarded Disposition: We will perform thoracentesis and paracentesis. Terry Velarde Internal Medicine Resident [facility] Addendum 2 bone lesions, t11 nd r ischium, discussed with son about findings, needs outpt pet ct Date of Service: Mar 21, 2025 Billing Provider: FELICIANO URIAS MD Common Visit Codes: [id number] INP/OBS CARE(HIGH) TERRY STILL, RES Mar 21, 2025 13:40 FELICIANO URIAS MD Mar 21, 2025 22:08
[2025-03-21] MEDS: albumin (human) 25% 100 ML IV solution IV ONE (13:56)
--- NOTE | 2025-03-21 15:36 | RADIOLOGY REPORT ---
PROCEDURE: ULTRASOUND GUIDED PARACENTESIS PERFORMING DOCTOR: Dr. CABALLERO HISTORY: 55 Female requiring paracentesis. TECHNIQUE: The risks and benefits of the procedure including but not limited to bleeding, infection and injury t o abdominal organs were explained to the patient and written informed consent was obtained. Optimal site for puncture was determined using ultrasound and the area sterilized and draped. Using a 5 Maori Yueh catheter, paracentesis was performed in the right lower abdomen. Approximately 1.05 liters fluid was removed. The patient tolerated the procedure well. There were no immediate compli cations. IMPRESSION: Ultrasound-guided paracentesis with no immediate complications.
--- NOTE | 2025-03-21 15:37 | RADIOLOGY REPORT ---
Left Chest Sonogram Date: 03/21/2025 01:24 PM Clinical history: leftpleural effusion Technique: Limited sonographic evaluation of the left chest was performed to evaluate for pleural ef fusion. Finding/Impression: There is a small pleural effusion visualized which is insufficient fluid for performance of thoracent esis.
[2025-03-21 15:47] LABS: GLUCOSE,BODY FLUID 132 MG/DL; LDH,BODY FLUID 56 U/L
[2025-03-21 15:59] LABS: TOTAL PROTEIN,BODY FLUID < 2.0 G/DL
[2025-03-21 16:20] LABS: BF MESOTHELIAL CELLS OCCASIONAL; BF WBC COUNT 53 /CU MM (0-1000); BFAPPEAR CLEAR; BFCOLOR YELLOW; BFSOURCE ASCITES FLD; BFVOLUME 45 ML; LYMPHOCYTES,BODY FLUID 51 %; MONOCYTES,BODY FLUID 46 %; NEUTROPHILS,BODY FLUID 3 %
[2025-03-21 17:37] LABS: BF RBC COUNT 480 /CU MM
--- NOTE | 2025-03-21 19:38 | CONSULTATION REPORT - RESIDENT ---
Consult Providers to CC Resident Creating Document: RAINA HENNAMARY Baumann RES History of Present Illness Reason for Admit\Complaint: Mechanical fall History of Present Illness 55-year-old female with a history of liver cirrhosis secondary to alcohol abuse depression/anxiety presents to the ED after a fall. Patient was brought in via ambulance from [facility] after she had fallen in the middle of the night after trying to go to the bathroom. She tells me she slipped and fell and hit her head and her chest against the floor. Denies any loss of consciousness. She did not immediately go to the ED as she can not get any help and later came to our ED almost a day later. On presentation patient complains of chest pain and weakness. Patient was placed in a cervical collar and cervical spine CT did not show any dislocation or fracture. Abdominal CT did show ascites. She recently had paracentesis done 03/13 with 6 L removed. Blood pressure admission hypotensive and was given IV fluids. We were consulted for paracentesis and thoracentesis due to left pleural effusion and ascites. Allergies: Coded Allergies: acetaminophen (Verified Allergy, Unknown, 03/14/25) LIVER FAILURE Home Medications Home Medications Active Reported Senna (Sennosides) 8.6 Mg Tablet 2 Tab PO DAILY Vitamine B-1 (Thiamine Hcl) 100 Mg Tablet 1 Tab PO DAILY Trazodone HCl 50 Mg Tablet 1 Tab PO HS Tramadol Hcl (Tramadol HCl) 50 Mg Tablet 1 Tab PO TID PRN Spironolactone 25 Mg Tablet Escitalopram Oxalate 20 Mg Tablet 1 Tab PO DAILY Midodrine Hcl 10 Mg Tablet 1 Tab PO TID Folic Acid* (Folic Acid) Y Tab 1 Tab PO DAILY Past Medical History Past Medical History Anxiety/depression Cirrhosis of liver secondary to alcohol abuse Past Social History Social History Comment History of alcohol use. Sober for the last seven months. Denies any recreational drug use or tobacco use. Homeless Exam Vitals: Vital Signs Date Time Temp Pulse Resp B/P (MAP) Pulse Ox O2 Delivery O2 Flow Rate FiO2 03/21/25 18:30 98.1 87 14 83/49 (60) 95 Room Air 03/21/25 07:45 0.0 Physical exam: General: Well alert, well oriented, not confused, not agitated, not in acute distress, well cooperated during the physical. HEENT: Conjunctive are pale, icteric sclerae, pupil is equal in both sides, reactive to light, no ear discharge, no pharyngeal erythema or an edema, presence of hematomas in bilateral eyes. Neck: Supple, no JVD, no lymphadenopathy and thyromegaly. Chest: Decreased air entry in the left base of the thorax. No wheezing or rhonchi auscultated. Presence of bruising in the right side of the chest, tender to palpation. Cardiovascular: S1-S2 regular sinus rhythm and, regular rate, no gallops, no rubs, no murmurs. Abdomen: No visible peristalsis, Bowel sounds present on auscultation, soft, no guarding, no rigidity, mildly distended. Extremities: No obvious deformities, no pitting edema bilaterally, capillary refill intact, peripheral pulsations are intact on both sides Central Nervous System: No focal neurological deficits, no motor or sensory weakness in all 4 extremities, could move all 4 extremities, 2+ deep tendon reflexes, negative Babinski. Musculoskeletal: No joint swelling, deformities, inflammations, and no scoliosis and back tenderness Skin: Warm and dry. Diagnostic Data Last Recorded Lab Results: 03/21/2561603/21/25 0617 Diagnostic Data: Laboratory Tests Test 03/19/25 10:37 03/20/25 04:36 Prothrombin Time 19.3 SECONDS (9.0-12.0) H INR International Normalized Ratio 2.0 INR Activated Partial Thromboplast Time 48 SECONDS (22-32) H Fibrinogen 78 MG/DL (177-424) L D-Dimer 18.30 MG/L FEU (0-0.50) H D-Dimer Comment Coagulation Comments Coagulation Clinical Comments Additional Plan Decompensated alcohol liver cirrhosis with ascites and portal hypertension: Meld Na score: 24 points, 14-15% estimated 90 day mortality. Child Verdin score class C: Life expectancy: 1-3 years, abdominal surgery светлана-operative mortality: 82%. Hyperbilirubinemia: Hypotension: The patient is currently oriented to person, place and time, complaining of abdominal distention. Currently managed with lactulose, spironolactone, propranolol. We were consulted for paracentesis. Paracentesis performed on 03/21/2025. 1 L of fluid ascitic was obtained. Fluid sent for analysis. Acute kidney injury from renal tubular stasis-resolved Current creatinine level: 0.90, GFR 65, BUN/creatinine ratio 8.9. Continue management as per hospitalist team. Hyperchromic Macrocytic anemia High retic count and normal LDH ruled out possible B12 deficiency H&H Q6Hrs Continue Thiamine, folate, multivitamins 3 units PRBC transfused were given 03/21/2025: Hemoglobin and hematocrit remained stable. Continue management as per hospitalist team. Left-sided pleural effusion: Right middle lobe and right lateral lobe atelectasis: Given insensitive spirometry Lasix after she becomes hemodynamically stable, still on soft side. Thoracentesis was attempted, no enough fluid was evidenced for thoracentesis. Mechanical fall Right breast bruising Cervical spine showed no fracture or dislocation on CT. Head CT negative for any hemorrhage. No more on Cervical collar. Ice pack for right breast pain Code status: Full code DVT prophylaxis: SCDs Analgesia/sedation: None Line/tube: PIV GI prophylaxis: None Nutrition: Regular rate PT: Recommends post-acute care. Prognosis: Guarded Disposition: Thoracentesis attempted, no enough fluid was evidenced. Paracentesis was performed, 1 L of fluid as obtained. Mary Velarde Internal Medicine Resident [facility] Date of Service: Mar 21, 2025 Billing Provider: BIJU GARCIA MD,MARY TITUS, RES Mar 21, 2025 19:38
--- NOTE | 2025-03-21 19:43 | PROCEDURE NOTE- Residance ---
Procedure Note Providers to CC CC: MARY STILL, RES ~ Planned Procedure Paracentesis Indications Ascites Type of Anesthesia Local Informed Consent Informed consent was obtained from patient. Benefits and risks were kindly explained. Description A time-out was performed. My hands were washed immediately prior to the procedure. I wore a surgical cap, mask with protective eyewear, sterile gown and sterile gloves throughout the procedure. The area was cleansed and draped in usual sterile fashion using chlorhexidine scrub. Anesthesia was achieved with 1% lidocaine. The left side of the abdomen was prepped and draped in a sterile fashion using chlorhexidine scrub. 1% lidocaine was used to numb the skin, soft tissue and peritoneum. The paracentesis catheter was inserted and advanced with negative pressure until yellow colored fluid was aspirated. Approximately 60 mL of ascitic fluid was collected and sent for laboratory analysis. The catheter was then connected to the vaccutainer and additional ascitic fluid were drained. The catheter was removed and no leaking was noted. A bandaid was placed over the puncture wound. The patient tolerated the procedure well without any immediate complications. Estimated blood loss was minimal. Total of 1 L of fluid removed. Complication None Date of Service: Mar 21, 2025 Billing Provider: BIJU GARCIA MD, FRANCO LUIS, RES Mar 21, 2025 19:43
[2025-03-22 06:00] VITALS: BP 96/58; PULSE 84; RESP 15; TEMP 98.3; O2SAT 90
[2025-03-22 07:32] LABS: BASOPHILS % (AUTO) 0.5 % (0-1); EOSINOPHILS # (AUTO) 0.1 X10'3 (0-0.9); EOSINOPHILS % (AUTO) 2.7 % (0-6); HEMATOCRIT 22.2 % (35.0-45.0); HEMOGLOBIN 7.6 g/dl (12.0-16.0); LYMPHOCYTES # (AUTO) 1.5 X10'3 (1.1-4.8); LYMPHOCYTES % (AUTO) 31.7 % (21-51); MEAN CORPUSCULAR HEMOGLOBIN 34.3 PG (27.0-31.0); MEAN CORPUSCULAR HGB CONC 34.1 g/dL (33.0-36.5); MEAN CORPUSCULAR VOLUME 100.6 FL (78-98); MEAN PLATELET VOLUME 6.8 FL (7.4-10.4); MONOCYTES # (AUTO) 0.8 X10'3 (0-0.9); MONOCYTES % (AUTO) 16.5 % (2-12); NEUTROPHILS # (AUTO) 2.2 X10'3 (1.8-7.7); NEUTROPHILS % (AUTO) 48.6 % (42-75); PLATELET COUNT 77 X10'3 (140-440); RED BLOOD COUNT 2.21 X10'6 (4.20-5.60); RED CELL DISTRIBUTION WIDTH 25.9 % (11.5-14.5); WHITE BLOOD COUNT 4.6 X10'3 (4.5-11.0)
[2025-03-22 07:51] LABS: ALANINE AMINOTRANSFERASE 17 U/L (12-78); ALBUMIN 3.1 G/DL (3.4-5.0); ALKALINE PHOSPHATASE 75 IU/L (46-116); ANION GAP 9 (8-16); ASPARTATE AMINO TRANSFERASE 43 U/L (10-37); BLOOD UREA NITROGEN 8 MG/DL (7-18); BUN/CREATININE RATIO 8.3 (10.0-20.0); CALCIUM 8.6 MG/DL (8.5-10.1); CHLORIDE 106 MMOL/L (99-107); CREATININE 0.96 MG/DL (0.40-0.90); GLUCOSE 115 MG/DL (70-104); POTASSIUM 3.3 MMOL/L (3.5-5.1); SODIUM 138 MMOL/L (135-145); TOTAL CARBON DIOXIDE 23.1 MMOL/L (24-32); eCRCL 56 ML/MIN; eGFR 60 ML/MIN
[2025-03-22 07:52] LABS: ALBUMIN/GLOBULIN RATIO 1.5 (1.1-1.5); TOTAL PROTEIN 5.2 G/DL (6.4-8.2)
[2025-03-22] MEDS: spironolactone 25 MG tablet PO SCH (08:30)
[2025-03-22 10:00] VITALS: BP 87/52; PULSE 76; RESP 18; TEMP 98.6; O2SAT 94
--- NOTE | 2025-03-22 11:42 | PROGRESS NOTE ---
Daily Progress Note Providers to CC ~ Antibiotic Timeout Antibiotic Ordered?: No Subjective Patient states feeling a little bit better; per family still confusion on and off Objective Vital Signs Date Time Temp Pulse Resp B/P (MAP) Pulse Ox O2 Delivery O2 Flow Rate FiO2 03/22/25 08:30 77 03/22/25 06:00 98.3 15 96/58 (71) 90 Room Air 03/21/25 07:45 0.0 Result Diagram: 03/22/25 0652 03/22/25 0652 In bed in nonacute distress HEENT normal oral mucosa no JVD she has periorbital hematomas Lungs with decreased left-sided entry Heart normal rate and rhythm S1-S2 Abdomen is soft nondistended nontender bowel sounds are present Extremities no edema plus two pulses Alert and oriented Coagulation Studies Laboratory Tests Test 03/19/25 10:37 03/20/25 04:36 Prothrombin Time 19.3 SECONDS (9.0-12.0) H INR International Normalized Ratio 2.0 INR Activated Partial Thromboplast Time 48 SECONDS (22-32) H Fibrinogen 78 MG/DL (177-424) L D-Dimer 18.30 MG/L FEU (0-0.50) H D-Dimer Comment Coagulation Comments Coagulation Clinical Comments Problem\Assessment\Plan Patient presents to the hospital after a mechanical fall resulting in chest arm and periorbital hematomas History of liver cirrhosis decompensated with ascites; had paracentesis done yesterday; spironolactone and Lasix; on lactulose Left-sided pleural effusion likely part of anasarca; not enough fluid for thoracocentesis Thrombocytopenia secondary to end-stage liver disease Anemia we will monitor; received blood during this admission Patient stated that she was having diarrhea and she has a history of alcohol use; possible pancreatic insufficiency; Enrique cameron Sullivan catheterization Discharge disposition possible rehab Date of Service: Mar 22, 2025 Billing Provider: FELICIANO URIAS MD Common Visit Codes: [id number] INP/OBS CARE(HIGH) FELICIANO URIAS MD Mar 22, 2025 11:42
[2025-03-22] MEDS ORDERED: potassium Cl 20 mEq SR tablet PO PRN (12:10)
[2025-03-22] MEDS ORDERED: magnesium Cl slow-release 64mg tablet PO PRN (12:10)
[2025-03-22] MEDS ORDERED: magnesium sulf-water 4G/100mL 100 ML IV PRN (12:10)
[2025-03-22] MEDS ORDERED: magnesium sulf-water 2g/50mL 50 ML IV PRN (12:10)
[2025-03-22] MEDS ORDERED: potassium Cl 40MEQ/1/2NS 520ml 520 ML IV PRN (12:10)
[2025-03-22 12:29] LABS: HEMATOCRIT 22.1 % (35.0-45.0); HEMOGLOBIN 7.7 g/dl (12.0-16.0); MEAN CORPUSCULAR HEMOGLOBIN 34.5 PG (27.0-31.0); MEAN CORPUSCULAR HGB CONC 34.6 g/dL (33.0-36.5); MEAN CORPUSCULAR VOLUME 99.7 FL (78-98); MEAN PLATELET VOLUME 6.6 FL (7.4-10.4); PLATELET COUNT 77 X10'3 (140-440); RED BLOOD COUNT 2.22 X10'6 (4.20-5.60); RED CELL DISTRIBUTION WIDTH 25.4 % (11.5-14.5); WHITE BLOOD COUNT 4.2 X10'3 (4.5-11.0)
[2025-03-22 12:41] LABS: MAGNESIUM 1.8 MG/DL (1.5-2.4); POTASSIUM 3.1 MMOL/L (3.5-5.1)
[2025-03-22] MEDS: potassium Cl 20 mEq SR tablet PO PRN (13:00)
[2025-03-22 16:28] VITALS: RESP 18; O2SAT 94
[2025-03-22 18:00] VITALS: BP 88/56; PULSE 81; RESP 18; TEMP 97.7; O2SAT 94
[2025-03-22] MEDS: K and/or MAG REPLACEMENT MC SCH (20:00)
[2025-03-22 22:00] VITALS: BP 99/64; PULSE 88; RESP 17; TEMP 97.8; O2SAT 94
[2025-03-23 05:00] VITALS: BP 91/40; PULSE 88; RESP 16; TEMP 99.3; O2SAT 93
[2025-03-23] MEDS: furosemide 40mg tablet PO SCH (08:00)
[2025-03-23 10:00] VITALS: BP 101/62; PULSE 89; RESP 16; TEMP 99.3; O2SAT 94
[2025-03-23] MEDS: spironolactone 50 MG tablet PO SCH (10:47)
--- NOTE | 2025-03-23 11:46 | PROGRESS NOTE ---
Daily Progress Note Providers to CC ~ Antibiotic Timeout Antibiotic Ordered?: No Subjective Patient has no complaints, family at bedside Objective Vital Signs Date Time Temp Pulse Resp B/P (MAP) Pulse Ox O2 Delivery O2 Flow Rate FiO2 03/23/25 05:00 99.3 88 16 91/40 (57) 93 Room Air 03/21/25 07:45 0.0 Result Diagram: 03/22/25 1221 03/22/25 1221 In bed in nonacute distress HEENT normal oral mucosa no JVD she has periorbital hematomas Lungs with decreased left-sided entry Heart normal rate and rhythm S1-S2 Abdomen is soft nondistended nontender bowel sounds are present Extremities no edema plus two pulses Alert and oriented Coagulation Studies Laboratory Tests Test 03/19/25 10:37 03/20/25 04:36 Prothrombin Time 19.3 SECONDS (9.0-12.0) H INR International Normalized Ratio 2.0 INR Activated Partial Thromboplast Time 48 SECONDS (22-32) H Fibrinogen 78 MG/DL (177-424) L D-Dimer 18.30 MG/L FEU (0-0.50) H D-Dimer Comment Coagulation Comments Coagulation Clinical Comments Problem\Assessment\Plan Patient presents to the hospital after a mechanical fall resulting in chest arm and periorbital hematomas History of liver cirrhosis decompensated with ascites; had paracentesis done 03/21; spironolactone and Lasix; on lactulose Left-sided pleural effusion likely part of anasarca; not enough fluid for thoracocentesis Thrombocytopenia secondary to end-stage liver disease, monitor Anemia we will monitor; received blood during this admission Patient stated that she was having diarrhea and she has a history of alcohol use; possible pancreatic insufficiency; Creon Discharge disposition possible rehab Date of Service: Mar 23, 2025 Billing Provider: FELICIANO URIAS MD Common Visit Codes: [id number] INP/OBS CARE(HIGH) FELICIANO URIAS MD Mar 23, 2025 11:46
[2025-03-23 15:13] LABS: BASOPHILS % (AUTO) 0.6 % (0-1); EOSINOPHILS # (AUTO) 0.1 X10'3 (0-0.9); EOSINOPHILS % (AUTO) 2.4 % (0-6); HEMATOCRIT 24.1 % (35.0-45.0); HEMOGLOBIN 8.2 g/dl (12.0-16.0); LYMPHOCYTES # (AUTO) 1.5 X10'3 (1.1-4.8); LYMPHOCYTES % (AUTO) 31.9 % (21-51); MEAN CORPUSCULAR HEMOGLOBIN 34.4 PG (27.0-31.0); MEAN CORPUSCULAR VOLUME 101.4 FL (78-98); MEAN PLATELET VOLUME 6.9 FL (7.4-10.4); MONOCYTES # (AUTO) 0.8 X10'3 (0-0.9); MONOCYTES % (AUTO) 17.1 % (2-12); NEUTROPHILS # (AUTO) 2.2 X10'3 (1.8-7.7); PLATELET COUNT 86 X10'3 (140-440); RED BLOOD COUNT 2.38 X10'6 (4.20-5.60); RED CELL DISTRIBUTION WIDTH 25.7 % (11.5-14.5); WHITE BLOOD COUNT 4.6 X10'3 (4.5-11.0)
[2025-03-23 15:24] LABS: ALANINE AMINOTRANSFERASE 18 U/L (12-78); ALKALINE PHOSPHATASE 96 IU/L (46-116); ANION GAP 6 (8-16); ASPARTATE AMINO TRANSFERASE 42 U/L (10-37); BLOOD UREA NITROGEN 8 MG/DL (7-18); BUN/CREATININE RATIO 9.5 (10.0-20.0); CALCIUM 8.4 MG/DL (8.5-10.1); CHLORIDE 108 MMOL/L (99-107); CREATININE 0.84 MG/DL (0.40-0.90); GLUCOSE 128 MG/DL (70-104); MAGNESIUM 1.7 MG/DL (1.5-2.4); POTASSIUM 4.3 MMOL/L (3.5-5.1); SODIUM 139 MMOL/L (135-145); TOTAL CARBON DIOXIDE 25.4 MMOL/L (24-32); eCRCL 64 ML/MIN; eGFR 70 ML/MIN
[2025-03-23 15:28] LABS: ALBUMIN/GLOBULIN RATIO 1.3 (1.1-1.5); TOTAL PROTEIN 5.4 G/DL (6.4-8.2)
[2025-03-23 16:19] LABS: PLATELET ESTIMATE DECREASED; POLYCHROMASIA 1+
[2025-03-23 16:20] LABS: ANISOCYTOSIS 3+; BURR CELLS 2+; SCHISTOCYTES FEW
[2025-03-23 18:00] VITALS: BP 95/57; PULSE 93; RESP 15; TEMP 98.6; O2SAT 100
[2025-03-23 20:00] VITALS: RESP 14; O2SAT 93
[2025-03-23 22:00] VITALS: BP 108/60; PULSE 96; RESP 14; TEMP 97.2; O2SAT 93
[2025-03-24 06:00] VITALS: BP 94/54; PULSE 93; RESP 15; TEMP 99; O2SAT 94
[2025-03-24 06:22] LABS: BASOPHILS # (AUTO) 0.1 X10'3 (0-0.2); BASOPHILS % (AUTO) 1.2 % (0-1); EOSINOPHILS # (AUTO) 0.1 X10'3 (0-0.9); EOSINOPHILS % (AUTO) 2.6 % (0-6); HEMATOCRIT 23.2 % (35.0-45.0); HEMOGLOBIN 7.8 g/dl (12.0-16.0); LYMPHOCYTES # (AUTO) 1.4 X10'3 (1.1-4.8); LYMPHOCYTES % (AUTO) 30.4 % (21-51); MEAN CORPUSCULAR HEMOGLOBIN 34.4 PG (27.0-31.0); MEAN CORPUSCULAR HGB CONC 33.6 g/dL (33.0-36.5); MEAN CORPUSCULAR VOLUME 102.5 FL (78-98); MEAN PLATELET VOLUME 6.7 FL (7.4-10.4); MONOCYTES # (AUTO) 0.8 X10'3 (0-0.9); MONOCYTES % (AUTO) 16.4 % (2-12); NEUTROPHILS # (AUTO) 2.3 X10'3 (1.8-7.7); NEUTROPHILS % (AUTO) 49.4 % (42-75); PLATELET COUNT 84 X10'3 (140-440); RED BLOOD COUNT 2.27 X10'6 (4.20-5.60); RED CELL DISTRIBUTION WIDTH 25.8 % (11.5-14.5); WHITE BLOOD COUNT 4.7 X10'3 (4.5-11.0)
[2025-03-24 06:37] LABS: ALANINE AMINOTRANSFERASE 17 U/L (12-78); ALBUMIN 3.1 G/DL (3.4-5.0); ALKALINE PHOSPHATASE 104 IU/L (46-116); ANION GAP 6 (8-16); ASPARTATE AMINO TRANSFERASE 43 U/L (10-37); BILIRUBIN,TOTAL 6.4 MG/DL (0.1-1.0); BLOOD UREA NITROGEN 10 MG/DL (7-18); BUN/CREATININE RATIO 11.8 (10.0-20.0); CALCIUM 8.6 MG/DL (8.5-10.1); CHLORIDE 106 MMOL/L (99-107); CREATININE 0.85 MG/DL (0.40-0.90); GLUCOSE 104 MG/DL (70-104); MAGNESIUM 1.6 MG/DL (1.5-2.4); POTASSIUM 4.6 MMOL/L (3.5-5.1); SODIUM 138 MMOL/L (135-145); TOTAL CARBON DIOXIDE 25.6 MMOL/L (24-32); eCRCL 63 ML/MIN; eGFR 69 ML/MIN
[2025-03-24 06:41] LABS: ALBUMIN/GLOBULIN RATIO 1.3 (1.1-1.5); TOTAL PROTEIN 5.4 G/DL (6.4-8.2)
[2025-03-24] MEDS: LIPASE/PROTEASE/AMYLASE 4,200 unit CAPSULE.DR PO SCH (08:53)
[2025-03-24 09:03] VITALS: BP 94/56; PULSE 89
[2025-03-24] MEDS ORDERED: FURO40TA4 PO (12:30)
[2025-03-24] MEDS ORDERED: PROP10TA10 PO (12:30)
[2025-03-24] MEDS ORDERED: SPIR50TA5 PO (12:30)
[2025-03-24] MEDS ORDERED: LACT10SO78 PO (12:30)
[2025-03-24] MEDS ORDERED: AMYL1CAP54 PO (12:37)
[2025-03-24] MEDS: lactose-reduced food (Ensure Enlive) - 237ml bottle PO SCH (13:55)
--- NOTE | 2025-03-24 17:03 | DISCHARGE SUMMARY-Residence ---
Discharge Summary Providers to CC Resident Creating Document: RAINA DENTMARY, RES ~ Discharge Summary Admission Diagnosis: Decompensated Liver Cirrhosis Hospital Course DATE OF ADMISSION: 03/13/2025 DATE OF DISCHARGE: 03/24/2025 Discharge Diagnosis\Comment: Decompensated alcohol liver cirrhosis with ascites and portal hypertension Meld Na score: 24 points, 14-15% estimated 90 day mortality. Child Verdin score class C: Life expectancy: 1-3 years, abdominal surgery светлана-operative mortality: 82%. Hyperbilirubinemia Hypotension Acute kidney injury from renal tubular stasis-resolved Hyperchromic Macrocytic anemia Left-sided pleural effusion Right middle lobe and right lateral lobe atelectasis Mechanical fall Right breast bruising Operations\Procedures: Paracentesis Consultants: [facility]ger Dr. Gonzales Complications: None Condition on DC: Stable New Medications: Lactulose (Lactulose) 10 Gram/15 Ml Solution 30 ML PO Q12H for constipation for 30 Days, #2000 ML 0 Refills Lipase/Protease/Amylase (Creon Dr 12,000 Units Capsule) 1 Each Capsule.dr 1 CAP PO Q8H for digestion for 30 Days, #90 CAP 0 Refills Furosemide (Furosemide) 40 Mg Tablet 40 MG PO DAILY for 30 Days, #30 TAB Propranolol Hcl* (Inderal*) 10 Mg Tablet 30 MG PO DAILY for 30 Days, #90 TAB Spironolactone (Spironolactone) 50 Mg Tablet 100 MG PO DAILY@0830 for 30 Days, #60 TAB Continued Medications: Escitalopram Oxalate (Escitalopram Oxalate) 20 Mg Tablet 1 TAB PO DAILY Folic Acid* (Folic Acid*) Y Tab 1 TAB PO DAILY Midodrine Hcl (Midodrine Hcl) 10 Mg Tablet 1 TAB PO TID Thiamine Hcl (Vitamine B-1) 100 Mg Tablet 1 TAB PO DAILY Tramadol Hcl (Tramadol Hcl) 50 Mg Tablet 1 TAB PO TID PRN for pain Trazodone HCl (Trazodone HCl) 50 Mg Tablet 1 TAB PO HS Discontinued Medications: Sennosides (Senna) 8.6 Mg Tablet 2 TAB PO DAILY Spironolactone (Spironolactone) 25 Mg Tablet Discharge Summary: HPI: 55-year-old female with a history of liver cirrhosis secondary to alcohol abuse depression/anxiety presents to the ED after a fall. Patient was brought in via ambulance from [facility] after she had fallen in the middle of the night after trying to go to the bathroom. She tells me she slipped and fell and hit her head and her chest against the floor. Denies any loss of consciousness. She did not immediately go to the ED as she can not get any help and later came to our ED almost a day later. On presentation patient complains of chest pain and weakness. Patient was placed in a cervical collar and cervical spine CT did not show any dislocation or fracture. Abdominal CT did show ascites. She recently had paracentesis done 03/13 with 6 L removed. Blood pressure admission hypotensive and was given IV fluids. Hospital course: 55-year-old female patient with past medical history of alcoholic liver cirrhosis was admitted to the hospital after experiencing a mechanical fall after she tripped going to the restroom. Due to head trauma the patient was ordered CT scan, without hemorrhage or other acute intracranial abnormality evidenced. The patient was admitted with decompensated alcoholic liver cirrhosis with ascites, macrocytic anemia, acute kidney injury, mechanical fall with right breast bruising, the patient underwent paracentesis on March 13 with 6 L removed at [facility]. Due to her mechanical fall, the patient initially was with cervical collar, which was removed after CT scan of the neck showed no fracture or dislocation. Due to her acute kidney injury, the patient was monitored, showing improvement until completely recovery on 03/21/2025. Cultures were obtained from ascites fluid, urine with final result of no growth. In due to her anemia, occult blood in his stool was obtained with negative result. Additionally due to her severe anemia the patient received 3 units of blood, the patient was monitored closely with hemoglobin and hematocrit which remained stable during hospitalization. Additional gastroenterology was consulted who did not recommend EGD, they suspected that her drop in hemoglobin is associated with her mechanical fall on hematomas formation. During this hospitalization abdominal distention was evidenced, patient was complaining of sensation of abdominal distention, paracentesis was performed on 03/21/2025 were 1 L was removed, after procedure the patient reports improvement of symptoms. The patient was also evaluated for possible thoracentesis in due to CT scan showing left-sided pleural effusion. When the patient was evaluated at the bedside with ultrasound, no enough fluid was evidenced for thoracentesis. The patient was evaluated by Physical therapy, the patient did well with physical therapy who recommends discharged home with assist. The patient remained hemodynamically stable. The patient will be discharged home with home health. Discharge course: The patient remained hemodynamically stable. The patient will be discharged with the following instructions: Come back to the emergency department or call 911 if severe abdominal pain, distention, shortness of breaths, altered level of consciousness is evidenced. Take furosemide one tablet of 40 mg daily. Take lactulose 30 mL every 12 hours. [place] [address] units every 8 hours with meals. Take propranolol three tablets of 10 mg daily. Take spironolactone two tablets of 50 mg daily. Continue your home medication escitalopram one tablet of 20 mg daily. Continue your folic acid one tablet daily. Take midodrine one tablet of 10 mg every 8 hours. Take thiamine one tablet of 100 mg daily. Take trazodone one tablet of 50 mg as needed for sleeping. Follow-up with your primary care physician within two weeks. Physical exam: General: Well alert, well oriented, not confused, not agitated, not in acute distress, well cooperated during the physical. HEENT: Conjunctive are pale, icteric sclerae, pupil is equal in both sides, reactive to light, no ear discharge, no pharyngeal erythema or an edema, presence of hematomas in bilateral eyes. Neck: Supple, no JVD, no lymphadenopathy and thyromegaly. Chest: Decreased air entry in the left base of the thorax. No wheezing or rhonchi auscultated. Presence of bruising bilaterally in the thorax, tender to palpation. Cardiovascular: S1-S2 regular sinus rhythm and, regular rate, no gallops, no rubs, no murmurs. Abdomen: No visible peristalsis, Bowel sounds present on auscultation, soft, no guarding, no rigidity, mildly distended. Extremities: No obvious deformities, no pitting edema bilaterally, capillary refill intact, peripheral pulsations are intact on both sides Central Nervous System: No focal neurological deficits, no motor or sensory weakness in all 4 extremities, could move all 4 extremities, 2+ deep tendon reflexes, negative Babinski. Musculoskeletal: No joint swelling, deformities, inflammations, and no scoliosis and back tenderness Skin: Warm and dry. Vital Signs Date Time Temp Pulse Resp B/P (MAP) Pulse Ox O2 Delivery O2 Flow Rate FiO2 03/24/25 09:03 89 94/56 (69) 03/24/25 08:00 Room Air 03/24/25 06:00 99.0 15 94 03/21/25 07:45 0.0 Laboratory Tests Test 03/23/25 14:47 03/24/25 06:06 White Blood Count 4.6 X10'3 4.7 X10'3 Red Blood Count 2.38 X10'6 2.27 X10'6 Hemoglobin 8.2 g/dl 7.8 g/dl Hematocrit 24.1 % 23.2 % Mean Corpuscular Volume 101.4 FL 102.5 FL Mean Corpuscular Hemoglobin 34.4 PG 34.4 PG Mean Corpuscular Hemoglobin Concent 34.0 g/dL 33.6 g/dL Red Cell Distribution Width 25.7 % 25.8 % Platelet Count 86 X10'3 84 X10'3 Mean Platelet Volume 6.9 FL 6.7 FL Neutrophils (%) (Auto) 48.0 % 49.4 % Lymphocytes (%) (Auto) 31.9 % 30.4 % Monocytes (%) (Auto) 17.1 % 16.4 % Eosinophils (%) (Auto) 2.4 % 2.6 % Basophils (%) (Auto) 0.6 % 1.2 % Neutrophils # (Auto) 2.2 X10'3 2.3 X10'3 Lymphocytes # (Auto) 1.5 X10'3 1.4 X10'3 Monocytes # (Auto) 0.8 X10'3 0.8 X10'3 Eosinophils # (Auto) 0.1 X10'3 0.1 X10'3 Basophils # (Auto) 0.0 X10'3 0.1 X10'3 CBC Comment Platelet Estimate Decreased Red Blood Cell Morphology Perf Polychromasia 1+ Basophilic Stippling Anisocytosis 3+ Macrocytosis 1+ Yudi Cells 2+ Schistocytes Few Sodium Level 139 MMOL/L 138 MMOL/L Potassium Level 4.3 MMOL/L 4.6 MMOL/L Chloride Level 108 MMOL/L 106 MMOL/L Carbon Dioxide Level 25.4 MMOL/L 25.6 MMOL/L Anion Gap 6 6 Blood Urea Nitrogen 8 MG/DL 10 MG/DL Creatinine 0.84 MG/DL 0.85 MG/DL Estimated GFR/1.73 m2 70 ML/MIN 69 ML/MIN BUN/Creatinine Ratio 9.5 11.8 Glucose Level 128 MG/DL 104 MG/DL Calcium Level 8.4 MG/DL 8.6 MG/DL Magnesium Level 1.7 MG/DL 1.6 MG/DL Total Bilirubin 6.0 MG/DL 6.4 MG/DL Aspartate Amino Transf (AST/SGOT) 42 U/L 43 U/L Alanine Aminotransferase (ALT/SGPT) 18 U/L 17 U/L Alkaline Phosphatase 96 IU/L 104 IU/L Ammonia 21 UMOL/L 19 UMOL/L Total Protein 5.4 G/DL 5.4 G/DL Albumin 3.0 G/DL 3.1 G/DL Globulin 2.4 G/DL 2.3 G/DL Albumin/Globulin Ratio 1.3 1.3 Chemistry Comments *Problems/Diagnosis: (1) Decompensation of cirrhosis of liver Status: Acute (2) Ground-level fall Status: Acute (3) Ascites Status: Acute (4) Hypoalbuminemia Status: Chronic (5) Closed head injury Status: Acute (6) Pleural effusion Status: Acute (7) Acute kidney injury Status: Acute Total Time Spent on D/C: > 30 Minutes Date of Service: Mar 24, 2025 Billing Provider: FELICIANO URIAS MD Common Visit Codes: [id number]-YGB/[id number] DISCH DAY >30min Problem Qualifiers (1) Ascites: Ascites type: due to alcoholic cirrhosis Qualified Codes: K70.31 - Alcoholic cirrhosis of liver with ascites MARY STILL, RES Mar 24, 2025 16:59 FELICIANO URIAS MD Mar 25, 2025 06:25
== END 2025-03-24 14:35 | disposition home health service (06) | DRG 280 ==
LOC: ER 17:32 → ED HOLD 23:56 → ORTHO 4S 03-15 14:10
PROVIDERS: ADMIT Internal Medicine; ATTEND Family Medicine
PROC: BW211ZZ Computerized Tomography (CT Scan) of Abdomen and Pelvis using Low Osmolar Contrast (ICD-10-PCS; 2025-03-14)
PROC: 30233N1 Transfusion of Nonautologous Red Blood Cells into Peripheral Vein, Percutaneous Approach (ICD-10-PCS; principal; 2025-03-16)
PROC: B32T1ZZ Computerized Tomography (CT Scan) of Left Pulmonary Artery using Low Osmolar Contrast (ICD-10-PCS; 2025-03-20)
PROC: B3201ZZ Computerized Tomography (CT Scan) of Thoracic Aorta using Low Osmolar Contrast (ICD-10-PCS; 2025-03-20)
PROC: B32S1ZZ Computerized Tomography (CT Scan) of Right Pulmonary Artery using Low Osmolar Contrast (ICD-10-PCS; 2025-03-20)
PROC: 0W9G3ZZ Drainage of Peritoneal Cavity, Percutaneous Approach (ICD-10-PCS; 2025-03-21)
DX: K70.31 Alcoholic cirrhosis of liver with ascites (principal); N17.0 Acute kidney failure with tubular necrosis; J90 Pleural effusion, not elsewhere classified; K72.10 Chronic hepatic failure without coma; D53.9 Nutritional anemia, unspecified; S20.01XA Contusion of right breast, initial encounter; K76.6 Portal hypertension; E80.6 Other disorders of bilirubin metabolism; E87.6 Hypokalemia; F32.A Depression, unspecified; F41.9 Anxiety disorder, unspecified; W18.39XA Other fall on same level, initial encounter; Y93.89 Activity, other specified; Y92.89 Other specified places as the place of occurrence of the external cause; Y99.8 Other external cause status; D69.59 Other secondary thrombocytopenia
CPT/HCPCS: 36415; 36430; 49083; 70450; 71045; 71260; 71270; 71275; 72125; 74177; 76604; 80053; 81001; 82103; 82140; 82272; 82728; 82945; 83540; 83550; 83605; 83615; 83690; 83735; 83930; 84100; 84132; 84145; 84157; 84484; 85007; 85008; 85025; 85027; 85045; 85379; 85384; 85610; 85730; 86885; 86900; 86901; 86920; 87070; 87081; 87088; 89051; 93005; 93970; 96365; 97110; 97116; 97161; 97162; 97530; 99291; A4314; A5200; A6258; C1758; G0378; J0696; J2470; J3480; J7030; J7040; J7050; P9016; P9047; Q0163; Q9967